=== PATIENT | male | born 1940 | race Two or more races ===

== ENCOUNTER → 2024-07-25 | Outpatient (CLI) | payer MEDICARE, MEDICAID, SELFPAY ==
[2024-07-25 09:43] LABS: Basophils # (Auto) 0.1 Thou/mm3 (0.0-0.2); Basophils % (Auto) 0 % (0-2.5); Eosinophils # (Auto) 0.4 Thou/mm3 (0.0-0.5); Eosinophils % (Auto) 2 % (0-10); Hematocrit 36.5 % (41.0-53.0); Hemoglobin 12.4 g/dL (13.5-16.0); Immature Granulocytes % (Auto) 1 % (0-0); Immature Granulocytes Auto 0.13 Thou/mm3 (0.00-0.00); Lymphocytes % (Auto) 11 % (10-50); Mean Corpuscular Hemoglobin 38.6 pg (25.0-35.0); Mean Corpuscular Volume 114 fL (80-100); Monocytes # (Auto) 1.1 Thou/mm3 (0.0-0.8); Monocytes % (Auto) 6 % (0-12); Neutrophils # (Auto) 15.1 Thou/mm3 (1.8-7.7); Neutrophils % (Auto) 80 % (37-80); Nucleated Red Blood Cell % 0 /100 WBC (0); Platelet Count 739 Thou/mm3 (140-440); Red Blood Count 3.21 Miln/mm3 (4.50-5.90); White Blood Count 18.9 Thou/mm3 (3.8-10.6)
[2024-07-25 10:07] LABS: Alanine Aminotransferase 44 U/L (10-49); Albumin, Serum 4.3 gm/dL (3.4-4.8); Albumin/Globulin Ratio 1.6 (1.2-2.2); Alkaline Phosphatase 70 U/L (46-116); Anion Gap 4 (7-16); Aspartate Amino Transferase 34 U/L (0-34); BUN/Creatinine Ratio 23 Ratio (12-20); Bilirubin,Total 0.5 mg/dL (0.3-1.2); Blood Urea Nitrogen 21 mg/dL (9-23); Calcium 9.9 mg/dL (8.3-10.6); Calcium (Corrected) 9.9 mg/dL (8.5-10.1); Carbon Dioxide 32.3 mMol/L (20.0-31.0); Cardiac Risk Estimate 2.6 RATIO (4.0-6.7); Chloride 104 mMol/L (98-107); Cholesterol 77 mg/dL (132-200); Creatinine (Component) 0.9 mg/dL (0.6-1.3); Globulin 2.7 gm/dL (2.3-3.5); Glucose 140 mg/dL (74-106); HDL Cholesterol 30 mg/dL (40-60); LDL Cholesterol,Calculated 27 mg/dL (0-130); Osmolality,Calculated 284 (275-295); Sodium 140 mMol/L (136-145); Triglycerides 101 mg/dL (30-150); eGFR > 60 See Note
[2024-07-25 10:09] LABS: Glucose Estimated Average 177 mg/dL (80-131); Hemoglobin A1C 7.8 % Hgb (4.8-6.0)
[2024-07-25 10:53] LABS: Creatinine MALB Rnd Ur 87 mg/dL (30-125)
[2024-07-25 11:06] LABS: Microalbumin Creat Ratio 2149 mg/gCrea (<30); Microalbumin, Random Urine 1870 mg/L (0-300)
== END | disposition home or self-care (01) ==
LOC: COPL 08:55
PROVIDERS: PCP Specialist; Referring Provider Nurse Practitioner Family; Visit Provider Internal Medicine Nephrology
DX: E11.22 Type 2 diabetes mellitus with diabetic chronic kidney disease (principal); N18.9 Chronic kidney disease, unspecified; D63.1 Anemia in chronic kidney disease; E78.5 Hyperlipidemia, unspecified; N04.9 Nephrotic syndrome with unspecified morphologic changes; D45 Polycythemia vera; Z51.11 Encounter for antineoplastic chemotherapy; E87.5 Hyperkalemia
CPT/HCPCS: 36415; 80053; 80061; 82043; 82570; 83036; 85025

== ENCOUNTER 2024-07-31 05:33 | Inpatient (IN) | payer MEDICARE, MEDICAID, SELFPAY ==
[2024-07-31] VITALS (93 sets, daily range): BP systolic 0–234; BP diastolic 0–92; PULSE 0–125; RESP 0–32; TEMP 34.8–36.7; O2SAT 71–100; BMI 26.6; BMI 30.4
--- NOTE | 2024-07-31 05:35 | PC.NURSE ---
Pt BIB EMS with chief c/o of SOB, CPR in process as they came in the back door.
--- NOTE | 2024-07-31 06:05 | EKG_ITS ---
[facility] Test Date: 2024-07-31 Pat Name: JONNY HUDSON Department: Room: - Gender: Male Knockdown Man: : 1940 Requested By: Davide Wong Order Number: [id number] Reading MD: Davide Wong Measurements Intervals [place] Rate: 48 P: NM: QRS: -76 QRSD: 181 T: 98 QT: 394 QTc: 353 Interpretive Statements IDIOVENTRICULAR RHYTHM No previous ECG available for comparison /[id number]/[email or web address]/[id number]
--- NOTE | 2024-07-31 06:05 | XR_ITS ---
Examination: CTA chest, with intravenous contrast. CTA abdomen, with intravenous contrast. CTA pelvis, with intravenous contrast. 2-D sagittal and coronal reconstructions. 3-D reconstructions. Date and time of exam: July 27 40,024 0916 hrs. Indications: Status post cardiac arrest today, hypoxic respiratory failure postintubation CTDI vol (mgy) 14.3 DLP (MGycm) 1200 Technique: Multiple CTA images, 2.0 mm slice thickness, obtained chest, abdomen, pelvis, with the high-resolution 64 slice scanner. 100 cc Isovue-370 is administered intravenously. Sagittal and coronal 2-D reconstructions are obtained. 3-D reconstructions, angiographic images are obtained. 3-D postprocessing, including vascular maximum intensity projections. Low dose protocols were performed. One or more of the following dose reduction techniques were used; automated exposure control, adjustment of the mA and/or KV according to patient size, use of iterative reconstruction technique. Findings: Endotracheal tube tip 3 cm above abraham There is no diagnostic contrast opacification of the thoracic aorta or pulmonary arteries Extensive bibasilar opacity consistent with pneumonia, aspiration pneumonia Significant vascular congestion Orogastric tube in the stomach No focal liver or splenic lesions No gallstones No pancreatic or adrenal mass No hydronephrosis Mild left perinephric stranding Aorta normal size No bowel obstruction Normal appendix No diverticulitis Mild hemorrhage adjacent to the bladder on the left side Urinary bladder contracted around a Anguiano catheter Hips bones of the pelvis intact No thoracic or lumbar vertebral body compression fracture Manubrium intact Acute fractures right second fourth fifth sixth seventh ribs Acute fractures left fourth fifth sixth ribs without displacement Impression: There is no diagnostic contrast opacification of vascular or other structures Extensive bibasilar pneumonia, consistent with aspiration pneumonia Multiple bilateral acute rib fractures No abdominal parenchymal laceration on this essentially noncontrast study Mild hemorrhage adjacent to the bladder in the pelvis on left side, clinical correlation advised Abdominal aorta intact, no free blood in the abdomen
--- NOTE | 2024-07-31 06:05 | XR_ITS ---
Examination: CT brain head without contrast. 2-D sagittal coronal reconstructions Date and time of exam:July 31, 2024 0914 hrs. Indications: Cardiac arrest, hypoxic respiratory failure CTDI: vol (mGy):59.6 DLP: (mGycm):1208 Technique: Multiple CT axial sections of the brain have been obtained, 5 mm slice thickness. Contrast has not been administered. 2-D sagittal, coronal reconstructions have been obtained Low dose protocols were performed. One or more of the following dose reduction techniques were used; automated exposure control, adjustment of the mA and/or KV according to patient size, use of iterative reconstruction technique. Findings: No significant ventricular enlargement. Intra-axial or extra-axial hemorrhage density is not seen. No mass effect or midline shift Basal cisterns are not remarkable. Fourth ventricle is midline. Cranial vault intact. Impression: Negative for acute hemorrhage, mass effect or midline shift As clinically warranted, brain MRI follow-up would best assess for anoxic ischemic change
--- NOTE | 2024-07-31 06:07 | XR_ITS ---
Examination: AP chest single view Technique: AP portable supine chest single view Exam date and time: July 31, 2024 at 0607 hrs. Indications: Cardiopulmonary arrest today Findings: Mild enlargement cardiac contour Prominent CHF with vascular congestion and bilateral perihilar edema Endotracheal tube tip 5 cm above abraham Orogastric tube in the stomach, tip below the level of the film Moderate osteopenia Impression: Prominent CHF, consider superimposed bilateral pneumonia Endotracheal tube tip 5 cm above abraham No pneumothorax Clavicles ribs grossly intact
[2024-07-31] MEDS: AMIODARONE 150 MG IVPB 150 MG/100 ML BAG 600 MG IV (06:19)
[2024-07-31 06:28] LABS: Base Excess -3 (-3-3); HCO3 27 mEq/L (20-26); O2 Saturation 92 % (91-98); PCO2 68 mmHg (32.0-48.0); PO2 81 mmHg (83-108)
[2024-07-31 06:29] LABS: Basophils # (Auto) 0.2 Thou/mm3 (0.0-0.2); Basophils % (Auto) 0 % (0-2.5); Eosinophils # (Auto) 0.7 Thou/mm3 (0.0-0.5); Eosinophils % (Auto) 2 % (0-10); Hematocrit 38.6 % (41.0-53.0); Hemoglobin 12.4 g/dL (13.5-16.0); Immature Granulocytes % (Auto) 4 % (0-0); Immature Granulocytes Auto 1.53 Thou/mm3 (0.00-0.00); Lymphocytes # (Auto) 14.6 Thou/mm3 (1.0-4.8); Lymphocytes % (Auto) 35 % (10-50); Mean Corpuscular HGB Conc 32.1 g/dl (31.0-37.0); Mean Corpuscular Hemoglobin 37.6 pg (25.0-35.0); Mean Corpuscular Volume 117 fL (80-100); Monocytes # (Auto) 2.9 Thou/mm3 (0.0-0.8); Monocytes % (Auto) 7 % (0-12); Neutrophils # (Auto) 22.2 Thou/mm3 (1.8-7.7); Neutrophils % (Auto) 53 % (37-80); Nucleated Red Blood Cell # 0.11 Thou/mm3 (0.00-0.00); Nucleated Red Blood Cell % 0 /100 WBC (0); Platelet Count 679 Thou/mm3 (140-440); RDW Standard Deviation 67.4 fL (35.1-43.9)
--- NOTE | 2024-07-31 06:30 | PC.NURSE ---
Per Dr. Cornejo only give 1 bolus of amiodarone
[2024-07-31] MEDS: EPINEPHrine Inj 16 MG in SODIUM CHLORIDE 0.9% 250 ML 234 ML 3.402 MG IV (06:38)
[2024-07-31 06:42] LABS: Inspired Oxygen, FIO2 100 %; Puncture Site Site Not Noted
[2024-07-31 06:43] LABS: Allen Test Performed/OK
[2024-07-31] MEDS: MIDAZOLAM/NS 100 MG IVPB 100 MG/100 ML BAG IV ×2 (06:45→07:54)
[2024-07-31] MEDS: PROPOFOL 1,000 MG IVPB 1,000 MG/100 ML VIAL 2.177 MG IV (06:50)
--- NOTE | 2024-07-31 06:51 | EDNOTE_ITS ---
ED CPR RME/HPI General Chief Complaint: Cardiac Arrest/CPR Stated Complaint: CARDIAC ARREST Time Seen by Provider: 07/31/24 05:59 Arrival date/time: 07/31/24 05:33 RME / HPI RME / HPI narrative: Call was made to 911 for SOB. Patient was found to be hypoxic and started on BiPap en rout. JPTA the patient had full cardiopulmonary arrest and arrived with CPR in progress. He was intubated on arrival with first pass using a 7.5 ETT with a GlydeScope with good CO2 color change and BL chest rises. After several minutes of CPR patient regained ROSC. 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 According to the family he is full code Related Data Allergies Allergy/AdvReac Type Severity Reaction Status Date / Time No Known Allergies Allergy Verified 07/31/24 06:44 Review of Systems Review of Systems ROS Unobtainable: unobtainable due to medical condition ED Exam Narrative Physical exam: Physical exam is limited due to patient's condition. Overall, he is below-knee amputee on the left. There are no signs or evidence of trauma. On arrival, his GCS is 3 and CPR is in progress. No spontaneous cardiopulmonary activity is noted. Patient was being bagged on arrival. No fecal or urinary incontinence was noted. Pupils were dilated and fixed Course Quality Measures none Orders Category Date Time Status Bedside COVID-19 Antigen Test NOW Care 07/31/24 10:59 Active COVID-19 Screening Questionnaire NOW Care 07/31/24 10:45 Active Supervisor Dock STAT Care 07/31/24 06:05 Active Continuous Pulse Oximetry ONCE Care 07/31/24 06:05 Completed Decision to Admit X1 Care 07/31/24 10:45 Completed EKG (ED ONLY) *Do not use* NOW Care 07/31/24 06:05 Completed EKG (ED ONLY) *Do not use* NOW Care 07/31/24 06:11 Completed Emergency Titration Protocol Stat Care 07/31/24 08:29 Ordered Anguiano to [place] Routine Care 07/31/24 06:06 Ordered Insert IV NOW Care 07/31/24 05:30 Completed Insert IV STAT Care 07/31/24 06:05 Completed Insert NG / OG tube NOW Care 07/31/24 06:05 Active Intubation NOW Care 07/31/24 05:[address] angio chest abdomen pelvis Stat Exams 07/31/24 06:[address] head/brain wo con Stat Exams 07/31/24 06:05 Completed EKG (ED Only) Stat Exams 07/31/24 06:05 Draft EKG (ED Only) Stat Exams 07/31/24 06:11 Ordered XR chest 1V post procedure Stat Exams 07/31/24 06:07 Completed ABG [Arterial Blood Gas] Stat Lab 07/31/24 06:23 Completed B-Type Natriuretic Peptide Stat Lab 07/31/24 06:05 Completed Blood Culture (Lab) Stat Lab 07/31/24 10:45 Received CBC Stat Lab 07/31/24 06:05 Completed Comprehensive Metabolic Panel Stat Lab 07/31/24 06:05 Completed Drug Screen,Urine Stat Lab 07/31/24 08:24 Completed Path Review Blood Smear Stat Lab 07/31/24 06:05 Completed Sputum Culture and Gram Stain Stat Lab 07/31/24 06:23 Received Troponin I Stat Lab 07/31/24 06:05 Completed UA [Urinalysis] Stat Lab 07/31/24 08:24 Completed Amiodarone 150 mg Ivpb [Nexterone Ivpb] Med 07/31/24 06:05 Discontinued 150 mg in 100 ml IV 600 mls/hr Midazolam/Ns 100 mg Ivpb [Versed Pf Inj in Ns Premix] Med 07/31/24 06:31 Active 100 mg in 100 ml IV 1 mg/hr Norepinephrine/NS 16mg/250ml [Levophed in NS 16mg/250ml Med 07/31/24 07:07 Active ] 16 mg in 250 ml IV 0.05 mcg/kg/min Piper/Tazo Inj [Zosyn Inj] 3.375 gm Med 07/31/24 10:22 Discontinued Sodium Chloride 0.9% (P) [Ns 0.9% (P)] 50 ml IV X1 Propofol 1,000 mg Ivpb [Diprivan Ivpb] Med 07/31/24 06:44 Discontinued 1,000 mg in 100 ml IV .STK-MED Propofol 1,000 mg Ivpb [Diprivan Ivpb] Med 07/31/24 06:48 Active 1,000 mg in 100 ml IV 5 mcg/kg/min Sodium Chloride 0.9% 250 ml [Ns] 234 ml Med 07/31/24 06:35 Active EPINEPHrine Inj [Adrenalin Inj] 16 mg IV 0.05 mcg/kg/min Vancomycin Inj 1,000 mg Med 07/31/24 10:23 Active Sodium Chloride 0.9% 250 ml [Ns] 250 ml IV X1 Mechanical [Volume Ventilator] Stat RT 07/31/24 Active Vital Signs Vital signs: Vital Signs Pulse Rate 0 L 07/31/24 05:35 Respiratory Rate 2 L 07/31/24 05:35 Blood Pressure 0/0 L 07/31/24 05:35 Pulse Oximetry (%) 71 L 07/31/24 05:35 Oxygen Delivery Method Ambu-Bag 07/31/24 05:35 Cardiac Arrest / CPR MDM Narrative MDM Narrative:: Patient's reason for cardiopulmonary arrest was aspiration pneumonia. Patient was discussed with Dr. Sky, who will admit the patient. Patient is started on combination of vancomycin and Zosyn. His white count is due to several etiologies, including his leukemia, CPR as well as his aspiration pneumonia. Patient data External records reviewed:: EMS form Clinical information provided by:: EMS and family Social determinants that could affect healthcare access:: none Patient has the following chronic illnesses:: Diabetes with complications How is presenting disease/condition affected by chronic disease/condition?: exacerbated by Evaluation data The following diagnostics were reviewed and interpreted by me:: lab results, radiology exam(s) and EKG tracing(s) Lab and/or radiology exams considered but not ordered:: Not applicable Interpretation Summary: The EKG showed idioventricular rhythm. Of note a trial of percutaneous pacing with made at the bedside, which event was higher settings the patient's or not c apture. Since his vitals and blood pressure is stabilized after combination of epinephrine and norepinephrine, further workup and recommendation will be deferred. Medications / Prescriptions Medications or Prescriptions considered but not ordered:: As mentioned in the ED Medication administrations:: Medication Administration History Midazolam HCl (Versed Pf Inj In Ns Premix) 100 mg in 100 mls @ 1 mls/hr IV .Q24H PRN; Protocol PRN Reason: PER PROTOCOL Stop: 08/05/24 06:30 Last Titration: 07/31/24 10:51 Dose: 3 mg/hr, 3 mls/hr Documented By: Admin: 07/31/24 07:54 Dose: 2 mg/hr, 2 mls/hr Documented By: ER Co-signed By: LIS Titration: 07/31/24 07:54 Dose: Infused Documented By: ER Co-signed By: LIS Admin: 07/31/24 06:45 Dose: 1 mg/hr, 1 mls/hr Documented By: DB Co-signed By: DELILAH Epinephrine HCl 16 mg/ Sodium (Chloride) 250 mls @ 3.402 mls/hr IV .Q24H PRN; Protocol PRN Reason: Per Protocol Stop: 08/30/24 06:34 Last Admin: 07/31/24 06:38 Dose: 0.05 mcg/kg/min, 3.402 mls/hr Documented By: MARC Propofol (Diprivan Ivpb) 1,000 mg in 100 mls @ 2.177 mls/hr IV .Q24H PRN; Protocol PRN Reason: PER PROTOCOL Stop: 08/30/24 06:47 Last Titration: 07/31/24 08:34 Dose: 15 mcg/kg/min, 6.532 mls/hr Documented By: Titration: 07/31/24 07:34 Dose: 10 mcg/kg/min, 4.355 mls/hr Documented By: Titration: 07/31/24 06:55 Dose: 5 mcg/kg/min, 2.177 mls/hr Documented By: Admin: 07/31/24 06:50 Dose: 5 mcg/kg/min, 2.177 mls/hr Documented By: DB Co-signed By: DELILAH Norepinephrine Bitartrate (Levophed In Ns 16mg/250ml) 16 mg in 250 mls @ 3.402 mls/hr IV .Q24H PRN; Protocol PRN Reason: PER protocol Stop: 08/30/24 07:06 Last Titration: 07/31/24 10:15 Dose: 0.13 mcg/kg/min, 8.845 mls/hr Documented By: Titration: 07/31/24 09:00 Dose: 0.11 mcg/kg/min, 7.484 mls/hr Documented By: Titration: 07/31/24 08:15 Dose: 0.09 mcg/kg/min, 6.124 mls/hr Documented By: Titration: 07/31/24 08:15 Dose: 0.9 mcg/kg/min, 61.235 mls/hr Documented By: Titration: 07/31/24 07:45 Dose: 0.07 mcg/kg/min, 4.763 mls/hr Documented By: Admin: 07/31/24 07:15 Dose: 0.05 mcg/kg/min, 3.402 mls/hr Documented By: ER Vancomycin HCl 1,000 mg/ (Sodium Chloride) 250 mls @ 150 mls/hr IV X1 ONE Stop: 07/31/24 12:02 Discontinued Medications Amiodarone HCl/Dextrose (Nexterone Ivpb) 150 mg in 100 mls @ 600 mls/hr IV .Q10M ONE; Protocol Stop: 07/31/24 06:14 Last Infusion: 07/31/24 06:30 Dose: Infused Documented By: Admin: 07/31/24 06:19 Dose: 600 mls/hr Documented By: DB Propofol (Diprivan Ivpb) Confirm Administered Dose 1,000 mg in 100 mls @ ud IV .STK-MED ONE Stop: 07/31/24 06:45 Last Admin: 07/31/24 06:54 Dose: Not Given Documented By: DB Non-Admin Reason: Override Medication Piperacillin Sod/Tazobactam (Sod 3.375 gm/ Sodium Chloride) 50 mls @ 100 mls/hr IV X1 ONE Stop: 07/31/24 10:51 Last Admin: 07/31/24 11:07 Dose: 100 mls/hr Documented By: ER As above Consultations Consultation(s) initiated? (list below): Yes Consultation #1 (Physician, Specialty, Details): Dr. Sky Diagnosis Cardiac arrest differential diagnosis: acute massive pulmonary embolism, acute respiratory failure, acute myocardial infarction and cardiac arrest Most likely diagnosis given after review of the tests above:: Aspiration pneumonia Status post cardiopulmonary resuscitation Admission Indicated Admission indicated?: indicated Admission Request Was there a request for admission?: Yes Admission Attestation Admission request attestation: Discussed case with [] from Hospitalist service regarding admission. Discussed patients ED course, exam findings, labs, and radiology results. The Hospitalist [agrees,declines] to accept the patient for admission. Disposition Plan Disposition Plan: Admit Critical Care Time Critical Care Time Critical Care Time: Yes Total Critical Care Time (min.): 45 Attestation: At the time mentioned above was in discussion with the family and reevaluation of his condition. This is separate from the time spent during CPR. Discharge Plan Plan Patient Disposition: Admit Acute Care w/in Hospital Patient condition on transfer: Stable Prescriptions/Referrals Referrals: Behzad([facility])Caleb NP [Primary Care Provider] - In 1 week Problem List Clinical Impression: Aspiration pneumonia, Cardiopulmonary arrest with successful resuscitation, Airway intubation performed without difficulty Patient/Caregiver Discharge Instructions Print Language: Yemeni Stand Alone Forms: [facility] Award Info., Patient Portal Info Letter
[2024-07-31 06:56] LABS: Alanine Aminotransferase 40 U/L (10-49); Albumin, Serum 3.8 gm/dL (3.4-4.8); Albumin/Globulin Ratio 1.5 (1.2-2.2); Alkaline Phosphatase 74 U/L (46-116); Anion Gap 16 (7-16); Aspartate Amino Transferase 37 U/L (0-34); BUN/Creatinine Ratio 15 Ratio (12-20); Bilirubin,Total 0.4 mg/dL (0.3-1.2); Blood Urea Nitrogen 17 mg/dL (9-23); Calcium 8.6 mg/dL (8.3-10.6); Calcium (Corrected) 8.8 mg/dL (8.5-10.1); Carbon Dioxide 25.9 mMol/L (20.0-31.0); Chloride 100 mMol/L (98-107); Creatinine (Component) 1.1 mg/dL (0.6-1.3); Estimated Creatinine Clearance 41.9 mL/min (>60); Globulin 2.6 gm/dL (2.3-3.5); Glucose 309 mg/dL (74-106); Osmolality,Calculated 296 (275-295); Sodium 142 mMol/L (136-145); Total Protein 6.4 gm/dL (5.7-8.2); eGFR > 60 See Note
--- NOTE | 2024-07-31 06:58 | PC.NURSE ---
Dr. Cornejo trying to pace pt at this time due Pt hr at 45
[2024-07-31 07:06] LABS: Potassium 2.6 mMol/L (3.4-5.1); Troponin I 0.056 ng/mL (0.0-0.045)
[2024-07-31 07:08] LABS: B-Type Natriuretic Peptide 304 pg/mL (0-100)
[2024-07-31] MEDS: Norepinephrine/NS 16mg/250ml 16 MG/250 ML BAG 3.402 MG IV (07:15)
[2024-07-31 07:19] LABS: Path Review Blood Smear Sent to Pathologist
[2024-07-31 08:48] LABS: Collection Type, Urine Catheter
[2024-07-31 09:08] LABS: Amphetamine/Methamp Scrn,U Negative (Negative); Barbiturate Screen,Urine Negative (Negative); Benzodiazepines Screen,Urine Negative (Negative); Benzoylecgonine Screen, Ur Negative (Negative); Fentanyl Screen,Urine Negative (Negative); Opiate Screen,Urine Negative (Negative); THC Screen,Urine Negative (Negative)
[2024-07-31 09:17] LABS: Bilirubin,Urine Negative (Negative); Blood,Urine 1+ (Negative); Glucose, Urine Negative (Negative); Ketones,Urine Negative (Negative); Leukocyte Esterase,Urine Trace (Negative); Nitrite,Urine Negative (Negative); Protein,Urine 3+ (Neg - Trace); Specific Gravity,Urine 1.025 (1.001-1.035); Urobilinogen,Urine 0.2 mg/dL (0.0-1.0)
[2024-07-31 09:29] LABS: Clarity,Urine Hazy (Clear/Hazy); Color,Urine Colorless (Lt Yel-Yel); RBC,Urine 21 /hpf (0-3); Squamous Epithelial Cell,Urine 4 /hpf (0-5); Transitional Epi Cells,Urine 1 /hpf (0-5); WBC,Urine 21 /hpf (0-5)
[2024-07-31] MEDS: PIPER/TAZO INJ 3.375 GM in SODIUM CHLORIDE 0.9% (P) 50 ML IV (11:07)
--- NOTE | 2024-07-31 11:45 | ECHO_ITS ---
Transthoracic Echo Report Ht (in): 65 Wt (lb): 160 Exam Location: Portable Status: Emergency Finisher Tailor Apprentice: Dinora Peña Indications: Procedure Performed: BP: 111 / 56 HR: 60 Rhythm: Bradycardia Technical Quality: Technically difficult study MEASUREMENTS (Male / Female) Normal Values 2D ECHO LV Diastolic Diameter PLAX 4.7 cm 4.2 - 5.9 / 3.9 - 5.3 cm LV Systolic Diameter PLAX 3.4 cm IVS Diastolic Thickness 1.2 cm 0.6 - 1.0 / 0.6 - 0.9 cm LVPW Diastolic Thickness 1.2 cm 0.6 - 1.0 / 0.6 - 0.9 cm LV Relative Wall Thickness 0.5 LVOT Diameter 2.1 cm Ascending Aorta Diameter 3.5 cm M-MODE Aortic Root Diameter MM 2.9 cm LA Systolic Diameter MM 3.4 cm LA Ao Ratio MM 1.2 AV Cusp Separation MM 2.1 cm DOPPLER AV Peak Velocity 121.0 cm/s AV Peak Gradient 5.9 mmHg AV Mean Gradient 3.0 mmHg AV Velocity Time Integral 22.6 cm LVOT Peak Velocity 96.7 cm/s LVOT Peak Gradient 3.7 mmHg LVOT Velocity Time Integral 18.9 cm LVOT Cardiac Index 2134.6 cm?/min?m? AV Area Cont Eq vti 2.9 cm? AV Area Cont Eq pk 2.8 cm? MV Peak Velocity 68.9 cm/s MV Peak Gradient 1.9 mmHg MV Mean Velocity 40.5 cm/s MV Mean Gradient 1.0 mmHg MV Area PHT 2.4 cm? Mitral E Point Velocity 69.8 cm/s Mitral A Point Velocity 60.6 cm/s Mitral E to A Ratio 1.2 LV E' Lateral Velocity 7.2 cm/s Mitral E to LV E' Lateral Ratio 9.7 LV E' Septal Velocity 4.3 cm/s Mitral E to LV E' Septal Ratio 16.0 TR Peak Velocity 188.0 cm/s TR Peak Gradient 14.1 mmHg FINDINGS Left Ventricle Normal left ventricular size, Mild LVH. systolic function with no obvious regional wall motion abnormalities. The ejection fraction is visually estimated at 55-60 %. Right Ventricle The right ventricle is normal in size and systolic function. The estimated right ventricular systoli c pressure, 25mmHg.RAP 5. Left Atrium The left atrium is normal by two-dimensional, color flow and Doppler imaging with no structural abnormalities, no thrombus formation present. Right Atrium The right atrium is normal by two-dimensional imaging, color flow and Doppler imaging with no struct ural abnormalities, no thrombus formation present. Atrial Septum The interatrial septum appears normal with no evidence of a shunt. Aorta The aorta is normal by two-dimensional, color flow and Doppler interrogation. Mitral Valve The mitral valve is mildly MAC. There is no significant mitral valve regurgitation. Aortic Valve The aortic valve is trileaflet. Mild sclerosis without stenosis. There is no significant aortic valv e regurgitation. Tricuspid Valve The tricuspid valve is normal by two-dimensional, color flow and Doppler interrogation. There is mil d tricuspid valve regurgitation. Pulmonic Valve The pulmonic valve is not well visualized. There is no significant pulmonic valve regurgitation. Vessels The pulmonary artery appears normal. The inferior vena cava pulmonary and hepatic veins appear dwight l. Pericardium The pericardium is normal by two-dimensional imaging. There is no significant pericardial effusion. Other Findings Pleural effusion present. CONCLUSIONS Indication: s/p cadiac arrest: Limited and suboptmal images - pt intubated and sedated. Normal LV size and function. Mild LVH. Estimated EF 55-60% Normal RV size and function. Mild biatrial dilataion Mild MAC. Mild AV sclerosis without stenosis. Midl biatrial dilatation: Mild TR. Midly dilated IVC. Pleural effusion present. John Bustillos (Electronically Signed) Final Date: 01 August 2024 18:34
[2024-07-31] MEDS: Vancomycin Inj 1,000 MG in SODIUM CHLORIDE 0.9% 250 ML 250 ML 150 MG IV (12:09)
--- NOTE | 2024-07-31 15:16 | XR_ITS ---
Examination: AP chest single view Technique: AP portable supine chest single view Exam date and time: July 31, 2024 1522 hrs. Indications: Post central line placement, hypoxic respiratory failure, status post cardiopulmonary arrest Findings: Enlarged cardiac contour with prominent vascular congestion Extensive bilateral edema and/or pneumonia Endotracheal tube tip 5.1 cm above abraham Orogastric tube in stomach tip below the level film Interval right internal jugular central line tip SVC no pneumothorax Impression: Prominent heart failure pattern Significant pneumonia right lung Tracheal tube tip 5.1 cm above abraham Interval right internal jugular central line tip SVC satisfactory position, no pneumothorax
--- NOTE | 2024-07-31 15:54 | ESHP_ITS ---
<Statement entered by Shilpa Fregoso MD - 08/01/24 07:27> Patient was seen and examined by me personally. I have directly supervised and reviewed the above documentation by the team resident and agree with its findings with any exceptions or additional findings as below. Plan of care was discussed with the attending, Dr. Blood. Shilpa Frgeoso, PGY-2 Documentation for date of: 07/31/24 HPI History of Present Illness Chief complaint: status post cardiac arrest History of present illness: The patient is a 84-year-old male with a previous medical history of CAD status post stent placement, hypertension, [id number] diabetes mellitus, status post left BKA, lymphoproliferative disorder who was brought in by ambulance on 05:33 AM after loss of conscioussness and breathing witnessed by his who started CPR and called EMS. Exact downtime is unknown. Patient continued to be resuscitated on the way to the hospital. Before that, according to the , he reported feeling shortness of breath a few days ago, went to a doctor on Thursday, denies any recent medication changes. She reported that he was diagnosed with leukemia earlier in the year. He also has a history of 3 stent placements. ED course: he continued to receive CPR, epinephrine and ROSC was achieved, after that he was started on epinephrine and norepinephrine drip. He also received amiodaron 150 mg once and was shortly transcutaneously paced due to bradycardia. He also received vancomycin and zosyn once. Labs showed leukocytosis 22, hemoglobin 12.4, PLT 679. ABG showed pH of 7.2, pCO2 68, pO2 81. CBC showed sodium 142, potassium 2.6, creatinine 1.1, lactic acid 4.8, troponin 0.056, BNP 304. UA was unremarkable. U tox was negative. EKG showed idioventricular rhythm. Head CT was negative for acute hemorrhage, mass effect or midline shift. Chest/abdomen/pelvis CTA showed extensive bibasilar pneumonia, consistent with aspiration pneumonia, multiple bilateral acute rib fractures, mild hemorrhage adjacent to the bladder on the left side. Home medications: amlodipine 10mg, aspirin 81 mg, atorvastatin 40 mg, clopidogrel 75 mg, docusate, ezetimibe 10 mg, gabapentin 300 mg BID, lisinopril 20 mg qday, metformin 1000mg BID, ntroglycerin 0.4 mg, ruxolitinib 10 mg. and daughter were at the bedside. is the decision maker. History taking and CODE status discussion were done with use of spanish medical interpreter. It was explained to the family that patient condition was critical and that he sustained multiple rib fracture in the aftermath of chest compression after CPR. It was explained to her that in case of repeat cardiac arrest resuscitation measures include chest compression too and can cause injuries and possibly bring additional suffering. agreed that she wanted patient to continue full treatment however patient CODE stats to be changed to DNR. Patient was admitted to the ICU due to cardiogenic shock and status post cardiac arrest management and treatment. Review of Systems Review of Systems ROS Unobtainable: unobtainable due to medical condition and due to endotracheal tube Exam Vital Signs Temp Pulse Resp BP Pulse Ox O2 Del Method FiO2 98.1 F 51 L 3 L 148/50 H 95 Mechanical Ventilation 100 07/31/24 13:16 07/31/24 15:15 07/31/24 15:15 07/31/24 15:15 07/31/24 15:15 07/31/24 12:30 07/31/24 14:37 Narrative Exam Gen: Well-developed and well-nourished. Sedated, intubated. HEENT: NCAT, PERRLA, 3 mm sluggishly reactive, EOMI, MMM, anicteric conjunctivae. CVS: normal S1 and S2. RRR. No M/R/G. Resp: CTA B/L. No rhonchi, rales, crackles or wheezing. Abd: soft, non-tender, non-distended. BS+ in all 4 quadrants. MSK: Good ROM in BUE & BLE. No edema or rash. Neuro: Face is symmetrical. Left BKA. Babinski negative on the right. Tendon reflexes +, symmetrical. Psych: impossible to assess. Results: Labs 08/02/24 05:14 08/02/24 05:14 Labs: Short CBC 07/31/24 Range/Units 06:05 WBC 42.0 H* D (3.8-10.6) Thou/mm3 Hgb 12.4 L (13.5-16.0) g/dL Hct 38.6 L (41.0-53.0) % Plt Count 679 H D (140-440) Thou/mm3 BMP 07/31/24 06:05 Sodium 142 Potassium 2.6 L* Chloride 100 Carbon Dioxide 25.9 BUN 17 Creatinine 1.1 Glucose 309 H Calcium 8.6 Cardiac Enzymes 07/31/24 Range/Units 06:05 Troponin I 0.056 H* (0.0-0.045) ng/mL Liver Function 07/31/24 Range/Units 06:05 Total Bilirubin 0.4 (0.3-1.2) mg/dL AST 37 H (0-34) U/L ALT 40 (10-49) U/L Alkaline Phosphatase 74 (46-116) U/L Albumin 3.8 (3.4-4.8) gm/dL Urine 07/31/24 Range/Units 08:24 Urine Color Colorless A (Lt Yel-Yel) Urine Clarity Hazy (Clear/Hazy) Urine pH 7.0 (5.0-7.0) Ur Specific [place] 1.025 (1.001-1.035) Urine Protein 3+ A (Neg - Trace) Urine Glucose (UA) Negative (Negative) ABG Interpretation ABG results: 07/31/24 06:23 ABG pH 7.20 L ABG pCO2 68 H ABG pO2 81 L ABG HCO3 27 H ABG O2 Saturation 92 ABG Base Excess -3 Quality Measures Quality Measures VTE prophylaxis Advance care planning discussed with:: spouse Medications Home Medications and Allergies Home Medications ?Medication ?Instructions ?Recorded ?Confirmed ?Type amlodipine 10 mg tablet 10 mg PO QDAY 07/31/24 07/31/24 History aspirin 81 mg chewable tablet 81 mg PO QDAY 07/31/24 07/31/24 History atorvastatin 40 mg tablet 40 mg PO QPM 07/31/24 07/31/24 History clopidogrel 75 mg tablet (Plavix) 75 mg PO QDAY 07/31/24 07/31/24 History docusate sodium 100 mg capsule 100 mg PO BID 07/31/24 07/31/24 History ezetimibe 10 mg tablet 10 mg PO QDAY 07/31/24 07/31/24 History folic acid 1 mg tablet 1 mg PO QDAY 07/31/24 07/31/24 History gabapentin 300 mg capsule 300 mg PO BID 07/31/24 07/31/24 History lisinopril 20 mg tablet 20 mg PO QDAY 07/31/24 07/31/24 History metformin 1,000 mg tablet 1,000 mg PO BIDWMEAL 07/31/24 07/31/24 History nitroglycerin 0.4 mg sublingual 0.4 mg buccal Q5MIN PRN Chest Pain 07/31/24 07/31/24 History tablet ruxolitinib 10 mg tablet (Jakafi) 10 mg PO QDAY 07/31/24 07/31/24 History Allergies Allergy/AdvReac Type Severity Reaction Status Date / Time No Known Allergies Allergy Verified 07/31/24 06:44 Visit Medications Acetaminophen (Acetaminophen 325 Mg Tablet) 650 mg PO Q4HR PRN PRN Reason: Pain 1-3 or Temp >99 Stop: 08/30/24 11:39 Acetaminophen (Acetaminophen Supp 650 Mg Supp) 650 mg OR Q4HR PRN PRN Reason: Pain 1-3 or Temp >99 Stop: 08/30/24 11:39 Enoxaparin Sodium (Enoxaparin Sod Inj 40 Mg/0.4 Ml Syringe) 40 mg SC QDAY [facility] Stop: 08/15/24 08:59 Midazolam HCl (Versed Pf Inj In Ns Premix) 100 mg in 100 mls @ 1 mls/hr IV .Q24H PRN; Protocol PRN Reason: PER PROTOCOL Stop: 08/05/24 06:30 Last Titration: 07/31/24 10:51 Dose: 3 mg/hr, 3 mls/hr Epinephrine HCl 16 mg/ Sodium (Chloride) 250 mls @ 3.402 mls/hr IV .Q24H PRN; Protocol PRN Reason: Per Protocol Stop: 08/30/24 06:34 Last Titration: 07/31/24 15:45 Dose: 0 mcg/kg/min, 0 mls/hr Propofol (Diprivan Ivpb) 1,000 mg in 100 mls @ 2.177 mls/hr IV .Q24H PRN; Protocol PRN Reason: PER PROTOCOL Stop: 08/30/24 06:47 Last Titration: 07/31/24 11:32 Dose: 20 mcg/kg/min, 8.709 mls/hr Norepinephrine Bitartrate (Levophed In Ns 16mg/250ml) 16 mg in 250 mls @ 3.402 mls/hr IV .Q24H PRN; Protocol PRN Reason: PER protocol Stop: 08/30/24 07:06 Last Titration: 07/31/24 10:15 Dose: 0.13 mcg/kg/min, 8.845 mls/hr Potassium Chloride (Kcl Ivpb) 20 meq in 100 mls @ 50 mls/hr IV Q2H LANG Stop: 07/31/24 18:13 Dopamine HCl/Dextrose (Intropin In D5w Ivpb) 400 mg in 250 mls @ 15.544 mls/hr IV .Q16H5M PRN; Protocol PRN Reason: Bradycardia <50 and MAP <65 Stop: 08/30/24 15:15 Pantoprazole Sodium (Pantoprazole Inj 40 Mg Vial) 40 mg IVP QDAY LANG Stop: 08/31/24 08:59 Discontinued Medications Amiodarone HCl/Dextrose (Nexterone Ivpb) 150 mg in 100 mls @ 600 mls/hr IV .Q10M ONE; Protocol Stop: 07/31/24 06:14 Last Infusion: 07/31/24 06:30 Dose: Infused Vancomycin HCl 1,000 mg/ (Sodium Chloride) 250 mls @ 150 mls/hr IV X1 ONE Stop: 07/31/24 12:02 Last Admin: 07/31/24 12:09 Dose: 150 mls/hr Piperacillin Sod/Tazobactam (Sod 3.375 gm/ Sodium Chloride) 50 mls @ 100 mls/hr IV X1 ONE Stop: 07/31/24 10:51 Last Infusion: 07/31/24 11:38 Dose: Infused Potassium Chloride (Kcl Ivpb) 10 meq in 100 mls @ 100 mls/hr IV Q1H LANG Stop: 07/31/24 15:45 Last Admin: 07/31/24 14:33 Dose: Not Given Dopamine HCl/Dextrose (Intropin In D5w Ivpb) 400 mg in 250 mls @ 15.544 mls/hr IV .Q16H5M LANG; Protocol Stop: 08/30/24 15:15 Potassium Chloride (Potassium Chloride 10% 20 Meq/15 Ml Udc) 40 meq NG X1 ONE Stop: 07/31/24 14:13 Assessment & Plan Plan The patient is a 84-year-old male with a previous medical history of CAD status post stent placement, [id number] diabetes mellitus, status post left BKA, leukemia who was brought in by ambulance on 05:33 AM after loss of conscioussness and breathing witnessed by his who started CPR and called EMS. Patient was admitted to the ICU due to cardiogenic shock and status post cardiac arrest management and treatment. NEURO #Status post cardiac arrest #Acute hypoxic brain injury Patient is s/p cardiac arrest with unknown down time. Head CT was unremarkable. Patient is currently sedated, will wean of midazolam and uptitrate propofol, start fentanyl. Plan: ? Continue sedation with propofol and fentanyl, goal RASS -3 ? Will continue to reassess neurological status ? Maintain normothermia CARDIO #Cardiogenic shock #NSTEMI Type 1 vs Type 2 #Bradycardia #Status post cardiac arrest #History of CAD status post stent placement #History of hypertension Patient had a cardiac arrest with unknown down time. EKG showed idioventricular rate. He was briefly paced in the ED. Troponin elevation most likely in setting of post-CPR. Plan: - downtitrate and discontinue epinephrine - started norepinephrine - started dopamine - goal MAP of >65, HR>50 - trend troponins - blood culture pending - echo ordered PULM #Acute hypoxic respiratory failure #Bilateral pneumonia Aspiration pneumonia vs CAP Plan: - continue mechanical ventilation - sputum culture pending - ceftriaxone 07/31-present - azithromycine 07/31-present GI #No active problems ?Pantoprazole for prophylaxis NEPHRO #Hypokalemia 07/31 K 2.6 Plan: - K+ 40 mEq NG tube - K+ 40 mEq IV - potassium checks URO #Intrapelvic hemorrhage CT showed mild hemorrhage adjacent to the bladder. Plan: - consulted urologist Dr. Caitlin BUSCH #History of lymphoproliferative disease #Leukocytosis Patient's reports him being diagnosed with leukemia in [place] earlier this year, however does not recall specific diagnosis. One of his home medication is ruxolitinib. CBC showed consistently elevated WBC count in the last year. 07/31 WBC 50.9. Leukocytosis ishigher than usual, likely reactive post cardiac arrest. - continue to monitor CBC ENDO #Zhl-[id number]-tbdhzyvlu diabetes mellitus Plan: - maintain euglycemia - SSI ID #Pneumonia Most likely aspiration vs CAP Plan: - Ceftriaxone - Azithromycine MSK #Acute rib fractures #S/p left BKA Plan: - pain control - imaging is negative for pneumothorax SKIN #No active problems DVT prophylaxis: lovenox sc GI prophylaxis: pantoprazole Diet: NPO [place]: Present Lines: peripheral lines, central line Antibiotics: ceftriaxone, azithromycine CODE STATUS: DNR Reason for ICU care: status post cardiac arrest and cardiogenic shock Plan of care discussed with attending Dr. Blood, PGY-[address] Fregoso. Eliana Guajardo MD, PGY 1. Attending Provider Attestation/Addendum Patient seen and examined with above resident, Eliana Guajardo MD. I agree with the findings, assessment, and plan of care as documented except for any differences below. Patient with [id number] cardiac arrest with unclear etiology. Being empirically treated for pneumonia in the suspect that this is related to resuscitative efforts and potential aspiration more so than underlying infection as he did not have significant symptoms prior to arrest per family. Patient with extensive cardiac history and awaiting input additionally from cardiology to help with determining need for ongoing intervention. Patient appears stable on current ventilator settings. Empirically treated for community-acquired pneumonia with appropriate prophylaxis and lines. Patient CODE STATUS has been changed to DNR after discussion with his . Will need to assess neurologic recovery by the interim will maintain normothermia to avoid secondary injury. Electrolytes being replaced appropriately though I doubt these are related to as the initial cause of the event. Description suggest that there was cardiac though initial rhythm suggest noncardiac causes typically seen with PEA/asystole. However this may. More of a reflection of the prolonged time between event and the time intervention could be done. He did have episode of V-fib during resuscitation here at the hospital to suggest cardiac. Surprisingly troponin trend was unrevealing thus far. There is an area of intrapelvic hemorrhage potentially which we will further delineated after input from urology. Continue all supportive care otherwise. Total critical care time: I personally spent 40 minutes for review of physiologic parameters, directing plan of care throughout the day, coordination of care with other specialties, and counseling patient's family at bedside. This is exclusive of time spent teaching housestaff or performing any separate billable procedures.
[2024-07-31] MEDS: POTASSIUM CHL 20 mEq IVPB 20 MEQ/100 ML BAG 50 MEQ IV ×2 (15:57→16:54)
[2024-07-31] MEDS: POTASSIUM CHLORIDE 10% 20 MEQ/15 ML UDC 40 MEQ NG (15:57)
[2024-07-31] MEDS: fentaNYL 2,500 MCG/250 ML BAG 2,500 MCG/250 ML BAG IV (16:20)
[2024-07-31] MEDS: PROPOFOL 1,000 MG IVPB 1,000 MG/100 ML VIAL 8.709 MG IV (16:26)
[2024-07-31 16:35] LABS: Basophils # (Auto) 0.2 Thou/mm3 (0.0-0.2); Basophils % (Auto) 0 % (0-2.5); Eosinophils % (Auto) 0 % (0-10); Hematocrit 33.8 % (41.0-53.0); Hemoglobin 11.4 g/dL (13.5-16.0); Immature Granulocytes % (Auto) 2 % (0-0); Immature Granulocytes Auto 1.22 Thou/mm3 (0.00-0.00); Lymphocytes # (Auto) 1.2 Thou/mm3 (1.0-4.8); Lymphocytes % (Auto) 2 % (10-50); Mean Corpuscular HGB Conc 33.7 g/dl (31.0-37.0); Mean Corpuscular Hemoglobin 37.7 pg (25.0-35.0); Mean Corpuscular Volume 112 fL (80-100); Monocytes # (Auto) 2.9 Thou/mm3 (0.0-0.8); Monocytes % (Auto) 6 % (0-12); Neutrophils # (Auto) 45.4 Thou/mm3 (1.8-7.7); Neutrophils % (Auto) 89 % (37-80); Nucleated Red Blood Cell # 0.19 Thou/mm3 (0.00-0.00); Nucleated Red Blood Cell % 0 /100 WBC (0); Platelet Count 693 Thou/mm3 (140-440); RDW Standard Deviation 65.6 fL (35.1-43.9); Red Blood Count 3.02 Miln/mm3 (4.50-5.90)
[2024-07-31 16:40] LABS: Lactate (Lactic Acid) 4.8 mMol/L (0.4-2.0)
[2024-07-31 16:43] LABS: White Blood Count 50.9 Thou/mm3 (3.8-10.6)
[2024-07-31 16:45] LABS: Path Review Blood Smear Sent to Pathologist
[2024-07-31] MEDS: cefTRIAXone/D5w 1gm IV premix 50 ML IV (16:49)
[2024-07-31 17:10] LABS: Alanine Aminotransferase 54 U/L (10-49); Albumin, Serum 3.7 gm/dL (3.4-4.8); Albumin/Globulin Ratio 1.5 (1.2-2.2); Alkaline Phosphatase 66 U/L (46-116); Anion Gap 14 (7-16); Aspartate Amino Transferase 60 U/L (0-34); BUN/Creatinine Ratio 15 Ratio (12-20); Bilirubin,Total 0.4 mg/dL (0.3-1.2); Blood Urea Nitrogen 26 mg/dL (9-23); Calcium 8.5 mg/dL (8.3-10.6); Calcium (Corrected) 8.7 mg/dL (8.5-10.1); Carbon Dioxide 26.5 mMol/L (20.0-31.0); Chloride 99 mMol/L (98-107); Creatinine (Component) 1.7 mg/dL (0.6-1.3); Estimated Creatinine Clearance 30.9 mL/min (>60); Globulin 2.5 gm/dL (2.3-3.5); Glucose 330 mg/dL (74-106); Osmolality,Calculated 295 (275-295); Potassium 3.5 mMol/L (3.4-5.1); Sodium 139 mMol/L (136-145); Total Protein 6.2 gm/dL (5.7-8.2); eGFR 39 See Note
[2024-07-31] MEDS: DOPamine/D5w 400 MG IVPB 400 MG/250 ML BAG 15.544 MG IV (17:10)
[2024-07-31 17:13] LABS: Troponin I 1.546 ng/mL (0.0-0.045)
[2024-07-31] MEDS: AZITHROMYCIN INJ 500 MG in SODIUM CHLORIDE 0.9% 250 ML 250 ML 250 MG IV (17:24)
[2024-07-31 17:40] LABS: Base Excess 1 (-3-3); HCO3 27 mEq/L (20-26); Inspired Oxygen, FIO2 80 %; PCO2 50 mmHg (32.0-48.0); pH, Arterial 7.34 (7.35-7.45)
[2024-07-31 17:46] LABS: Allen Test Performed/OK; Puncture Site Left Brachial
[2024-07-31 17:47] LABS: O2 Saturation 81 % (91-98); PO2 51 mmHg (83-108)
[2024-07-31] MEDS: INSULIN LISPRO (AdmeLOG) 1 UNIT/0.01 ML UNIT SC (18:13)
--- NOTE | 2024-07-31 18:54 | PD.RESPROC ---
Procedures Procedure Date / Time 07/31/24 1500 Procedure Narrative Procedure Narrative: Attending Attestation: I was present for entire procedure. No immediate complications. Patient tolerated procedure well. Minimal blood loss. Follow-up chest film confirms no postprocedural pneumothorax. Central Line Placement Right IJ: Indication(s): shock and poor, or inadequate peripheral venous access Informed consent obtained: obtained from surrogate decision maker Time out done, and the following verified: correct patient, side and site, procedure and patient position Patient placed on monitor/pulse ox: Yes Hand Hygiene: alcohol-based hand rub Max Sterile Barrier Techniques used: cap, mask, sterile gown, sterile gloves and sterile full body drape Central line prep: Chlorhexidine scrub and sterile drapes applied Local anesthesia used: lidocaine 1% Amount of anesthesia used (mL): 3 Ultrasound used for placement: Yes Sterile Technique if Ultrasound used, including sterile gel: yes Central line lumen inserted: triple Post procedure: sutured in place, good blood return, all ports aspirated, flushed, capped and sterile dressing applied Post procedure x-ray: tip of catheter in good position and no pneumothorax seen Patient tolerated procedure: well and no complications EBL(ml): 3 Complications: none Procedure comment: Procedure was done under supervision and guidance of agency service representative Dr. Blood. Eliana Guajardo PGY-1
[2024-07-31 19:07] LABS: Magnesium 1.7 mg/dL (1.6-2.6); Phosphorous 4.5 mg/dL (2.4-5.1); Potassium 4.3 mMol/L (3.4-5.1)
[2024-07-31 19:30] LABS: Reflex Lactate? Y
[2024-07-31 19:49] LABS: Lactic Acid, 3 HR 4.8 mMol/L (0.4-2.0)
[2024-08-01] VITALS (105 sets, daily range): BP systolic 89–167; BP diastolic 36–71; PULSE 49–76; RESP 12–32; TEMP 36.7–37.2; O2SAT 81–95; BMI 30.4
[2024-08-01] MEDS: INSULIN LISPRO (AdmeLOG) 1 UNIT/0.01 ML UNIT SC ×4 (00:23→17:41)
[2024-08-01 00:50] LABS: Lactate (Lactic Acid) 3.3 mMol/L (0.4-2.0)
[2024-08-01 01:16] LABS: Troponin I 1.759 ng/mL (0.0-0.045)
[2024-08-01 03:47] LABS: Reflex Lactate? Y
[2024-08-01 05:15] LABS: Base Excess 6 (-3-3); HCO3 31 mEq/L (20-26); Inspired Oxygen, FIO2 100 %; O2 Saturation 77 % (91-98); PCO2 46 mmHg (32.0-48.0); pH, Arterial 7.43 (7.35-7.45)
[2024-08-01 05:24] LABS: Allen Test Performed/OK; Puncture Site Right Radial
[2024-08-01 05:25] LABS: PO2 43 mmHg (83-108)
[2024-08-01 05:51] LABS: Lactate (Lactic Acid) 2.4 mMol/L (0.4-2.0)
--- NOTE | 2024-08-01 06:00 | XR_ITS ---
Examination: AP chest single view Technique one AP portable semiupright chest single view Exam date and time: August 01, 2024 hours 0430 hours Comparison July 31, 2004 1522 hours INDICATIONS: Status post cardiac arrest hypoxic respiratory failure postintubation FINDINGS: Tracheal tube tip 4.5 cm above abraham Right internal jugular central line tip satisfactory position Cardiac compensation with prominent vascular congestion and perihilar edema Prominent bibasilar pneumonia Moderate osteopenia No pneumothorax IMPRESSION: Prominent bibasilar pneumonia consistent with aspiration pneumonia
[2024-08-01 06:02] LABS: Basophils # (Auto) 0.1 Thou/mm3 (0.0-0.2); Basophils % (Auto) 0 % (0-2.5); Eosinophils % (Auto) 0 % (0-10); Hematocrit 32.3 % (41.0-53.0); Immature Granulocytes % (Auto) 2 % (0-0); Immature Granulocytes Auto 0.48 Thou/mm3 (0.00-0.00); Lymphocytes # (Auto) 1.7 Thou/mm3 (1.0-4.8); Lymphocytes % (Auto) 5 % (10-50); Mean Corpuscular HGB Conc 34.1 g/dl (31.0-37.0); Mean Corpuscular Hemoglobin 38.2 pg (25.0-35.0); Mean Corpuscular Volume 112 fL (80-100); Monocytes # (Auto) 2.8 Thou/mm3 (0.0-0.8); Monocytes % (Auto) 9 % (0-12); Neutrophils # (Auto) 26.8 Thou/mm3 (1.8-7.7); Neutrophils % (Auto) 84 % (37-80); Nucleated Red Blood Cell # 0.14 Thou/mm3 (0.00-0.00); Nucleated Red Blood Cell % 0 /100 WBC (0); Platelet Count 629 Thou/mm3 (140-440); RDW Standard Deviation 65.1 fL (35.1-43.9); Red Blood Count 2.88 Miln/mm3 (4.50-5.90); White Blood Count 31.8 Thou/mm3 (3.8-10.6)
[2024-08-01 06:51] LABS: Alanine Aminotransferase 48 U/L (10-49); Albumin, Serum 3.7 gm/dL (3.4-4.8); Albumin/Globulin Ratio 1.5 (1.2-2.2); Alkaline Phosphatase 58 U/L (46-116); Anion Gap 11 (7-16); Aspartate Amino Transferase 50 U/L (0-34); BUN/Creatinine Ratio 15 Ratio (12-20); Bilirubin,Total 0.3 mg/dL (0.3-1.2); Blood Urea Nitrogen 35 mg/dL (9-23); Calcium 8.5 mg/dL (8.3-10.6); Calcium (Corrected) 8.7 mg/dL (8.5-10.1); Carbon Dioxide 29.1 mMol/L (20.0-31.0); Chloride 100 mMol/L (98-107); Creatinine (Component) 2.3 mg/dL (0.6-1.3); Estimated Creatinine Clearance 22.8 mL/min (>60); Globulin 2.5 gm/dL (2.3-3.5); Glucose 243 mg/dL (74-106); Magnesium 1.6 mg/dL (1.6-2.6); Osmolality,Calculated 295 (275-295); Phosphorous 3.2 mg/dL (2.4-5.1); Potassium 4.2 mMol/L (3.4-5.1); Sodium 140 mMol/L (136-145); Total Protein 6.2 gm/dL (5.7-8.2); eGFR 27 See Note
[2024-08-01] MEDS: PROPOFOL 1,000 MG IVPB 1,000 MG/100 ML VIAL 8.709 MG IV (07:41)
[2024-08-01] MEDS: cefTRIAXone/D5w 1gm IV premix 50 ML IV (08:19)
[2024-08-01] MEDS: Magnesium Sulfate 4 GM Ivpb 4 GM/50 ML BAG IV (08:20)
[2024-08-01] MEDS: PANTOPRAZOLE INJ 40 MG VIAL IVP (08:21)
[2024-08-01] MEDS: ENOXAPARIN SOD INJ 40 MG/0.4 ML SYRINGE SC (08:21)
[2024-08-01] MEDS: fentaNYL 2,500 MCG/250 ML BAG 2,500 MCG/250 ML BAG 27.5 MCG IV (08:39)
[2024-08-01 08:45] LABS: Reflex Lactate? Y
[2024-08-01] MEDS: AMIODARONE 150 MG IVPB 150 MG/100 ML BAG 600 MG IV (09:10)
[2024-08-01] MEDS: AMIODARONE 360 MG IVPB 360 MG/200 ML BAG 33.333 MG IV (09:20)
--- NOTE | 2024-08-01 09:22 | ESPR_ITS ---
<Statement entered by Shilpa Fregoso MD - 08/01/24 16:14> Patient was seen and examined by me personally. I have directly supervised and reviewed the above documentation by the team resident and agree with its findings with any exceptions or additional findings as below. Plan of care was discussed with the attending, Dr. Blood. Shilpa Fregoso, PGY-2 Documentation for date of: 08/01/24 Subjective Subjective Interval history: 07/29/2024: Patient was seen and examined by the bedside. Overnight patient had been bradycardic in the evening. He continued to be on dopamin. In the a.m. he had an short episode of ventricular tachycardia, that quickly resolved, he was started on amiodarone drip, dopamine was down titrated and Levophed was started. Also he started to desaturate, FiO2 was increased to 100 which did not improve the saturation, PEEP was increased to 10. Repeat chest x-ray did not showed significant worsening of pneumonia or CHF, negative for pneumothorax. He received a breathing treatments. His saturations has improved. According to the patient was following up with Dr. Bustillos and and was planned to be assessed for pacemaker plantation. Per it was requested that information about patient condition will be shared only with her. Exam Vital Signs Temp Pulse Resp BP Pulse Ox O2 Del Method FiO2 97.6 F 51 L 20 107/40 L 89 L Mechanical Ventilation 100 07/31/24 16:01 08/01/24 09:20 08/01/24 01:00 08/01/24 09:20 08/01/24 07:45 07/31/24 12:30 08/01/24 08:00 Narrative Exam Gen: Well-developed and well-nourished. Sedated, intubated. GCS 3. HEENT: NCAT, PERRLA, 2 mm, EOMI, MMM, anicteric conjunctivae. CVS: normal S1 and S2. RRR. No M/R/G. Resp: CTA B/L. No rhonchi, rales, crackles or wheezing. Abd: soft, non-tender, non-distended. BS+ in all 4 quadrants. MSK: Good ROM in BUE & BLE. No edema or rash. Neuro: Face is symmetrical. Coughing reflex intact. Left BKA. Babinski negative on the right. Tendon reflexes +, symmetrical. Psych: impossible to assess. Objective Labs 08/02/24 05:14 08/02/24 05:14 Labs: Laboratory Results - last 24 hr 07/31/24 07/31/24 07/31/24 08:24 16:23 16:55 WBC 50.9 H* D RBC 3.02 L Hgb 11.4 L Hct 33.8 L MCV 112 H MCH 37.7 H MCHC 33.7 RDW Std Deviation 65.6 H Plt Count 693 H Neut % (Auto) 89 H Lymph % (Auto) 2 L [place] % (Auto) 6 Eos % (Auto) 0 Baso % (Auto) 0 Neut # (Auto) 45.4 H Lymph # (Auto) 1.2 [place] # (Auto) 2.9 H Eos # (Auto) 0.0 Baso # (Auto) 0.2 Immature Gran # (Auto) 1.22 H Absolute Nucleated RBC 0.19 H Immature Gran % 2 H Nucleated RBC % 0 Smear Path Review Sent to Pathologist Puncture Site Cancelled ABG pH Cancelled ABG pCO2 Cancelled ABG pO2 Cancelled ABG HCO3 Cancelled ABG O2 Saturation Cancelled ABG Base Excess Cancelled Oxygen Liter Flow Cancelled FiO2 Cancelled Sodium 139 Potassium 3.5 D Chloride 99 Carbon Dioxide 26.5 Anion Gap 14 BUN 26 H Creatinine 1.7 H D Estim Creat Clear Calc 30.9 L eGFR 39 L BUN/Creatinine Ratio 15 Glucose 330 H Calculated Osmolality 295 Lactic Acid 4.8 H* Calcium 8.5 Corrected Calcium 8.7 Phosphorus Magnesium Total Bilirubin 0.4 AST 60 H ALT 54 H Alkaline Phosphatase 66 Troponin I 1.546 H* D Total Protein 6.2 Albumin 3.7 Globulin 2.5 Albumin/Globulin Ratio 1.5 Ur Collection Type Catheter Urine Color Colorless A Urine Clarity Hazy Urine pH 7.0 Ur Specific Jackson 1.025 Urine Protein 3+ A Urine Glucose (UA) Negative Urine Ketones Negative Urine Blood 1+ A Urine Nitrite Negative Urine Bilirubin Negative Urine Urobilinogen (Auto) 0.2 Ur Leukocyte Esterase Trace Urine RBC 21 H Urine WBC 21 H Ur Squamous Epith Cells 4 Ur Transition Epith Cell 1 Urine Bacteria None 07/31/24 07/31/24 07/31/24 17:33 18:40 19:38 WBC RBC Hgb Hct MCV MCH MCHC RDW Std Deviation Plt Count Neut % (Auto) Lymph % (Auto) [place] % (Auto) Eos % (Auto) Baso % (Auto) Neut # (Auto) Lymph # (Auto) [place] # (Auto) Eos # (Auto) Baso # (Auto) Immature Gran # (Auto) Absolute Nucleated RBC Immature Gran % Nucleated RBC % Smear Path Review Puncture Site Left Brachial ABG pH 7.34 L D ABG pCO2 50 H D ABG pO2 51 L* D ABG HCO3 27 H ABG O2 Saturation 81 L ABG Base Excess 1 Oxygen Liter Flow FiO2 80 Sodium Potassium 4.3 D Chloride Carbon Dioxide Anion Gap BUN Creatinine Estim Creat Clear Calc eGFR BUN/Creatinine Ratio Glucose Calculated Osmolality Lactic Acid 4.8 H* Calcium Corrected Calcium Phosphorus 4.5 Magnesium 1.7 Total Bilirubin AST ALT Alkaline Phosphatase Troponin I Total Protein Albumin Globulin Albumin/Globulin Ratio Ur Collection Type Urine Color Urine Clarity Urine pH Ur Specific Jackson Urine Protein Urine Glucose (UA) Urine Ketones Urine Blood Urine Nitrite Urine Bilirubin Urine Urobilinogen (Auto) Ur Leukocyte Esterase Urine RBC Urine WBC Ur Squamous Epith Cells Ur Transition Epith Cell Urine Bacteria 08/01/24 08/01/24 08/01/24 00:31 05:00 05:30 WBC 31.8 H D RBC 2.88 L Hgb 11.0 L Hct 32.3 L MCV 112 H MCH 38.2 H MCHC 34.1 RDW Std Deviation 65.1 H Plt Count 629 H D Neut % (Auto) 84 H Lymph % (Auto) 5 L [place] % (Auto) 9 Eos % (Auto) 0 Baso % (Auto) 0 Neut # (Auto) 26.8 H Lymph # (Auto) 1.7 [place] # (Auto) 2.8 H Eos # (Auto) 0.0 Baso # (Auto) 0.1 Immature Gran # (Auto) 0.48 H Absolute Nucleated RBC 0.14 H Immature Gran % 2 H Nucleated RBC % 0 Smear Path Review Puncture Site Right Radial ABG pH 7.43 ABG pCO2 46 ABG pO2 43 L* ABG HCO3 31 H ABG O2 Saturation 77 L ABG Base Excess 6 H Oxygen Liter Flow FiO2 100 Sodium 140 Potassium 4.2 Chloride 100 Carbon Dioxide 29.1 Anion Gap 11 BUN 35 H Creatinine 2.3 H D Estim Creat Clear Calc 22.8 L eGFR 27 L BUN/Creatinine Ratio 15 Glucose 243 H D Calculated Osmolality 295 Lactic Acid 3.3 H 2.4 H Calcium 8.5 Corrected Calcium 8.7 Phosphorus 3.2 Magnesium 1.6 Total Bilirubin 0.3 AST 50 H ALT 48 Alkaline Phosphatase 58 Troponin I 1.759 H* D Total Protein 6.2 Albumin 3.7 Globulin 2.5 Albumin/Globulin Ratio 1.5 Ur Collection Type Urine Color Urine Clarity Urine pH Ur Specific Jackson Urine Protein Urine Glucose (UA) Urine Ketones Urine Blood Urine Nitrite Urine Bilirubin Urine Urobilinogen (Auto) Ur Leukocyte Esterase Urine RBC Urine WBC Ur Squamous Epith Cells Ur Transition Epith Cell Urine Bacteria 08/01/24 09:03 WBC RBC Hgb Hct MCV MCH MCHC RDW Std Deviation Plt Count Neut % (Auto) Lymph % (Auto) [place] % (Auto) Eos % (Auto) Baso % (Auto) Neut # (Auto) Lymph # (Auto) [place] # (Auto) Eos # (Auto) Baso # (Auto) Immature Gran # (Auto) Absolute Nucleated RBC Immature Gran % Nucleated RBC % Smear Path Review Puncture Site ABG pH ABG pCO2 ABG pO2 ABG HCO3 ABG O2 Saturation ABG Base Excess Oxygen Liter Flow FiO2 Sodium Potassium Chloride Carbon Dioxide Anion Gap BUN Creatinine Estim Creat Clear Calc eGFR BUN/Creatinine Ratio Glucose Calculated Osmolality Lactic Acid 2.0 Calcium Corrected Calcium Phosphorus Magnesium Total Bilirubin AST ALT Alkaline Phosphatase Troponin I Total Protein Albumin Globulin Albumin/Globulin Ratio Ur Collection Type Urine Color Urine Clarity Urine pH Ur Specific Jackson Urine Protein Urine Glucose (UA) Urine Ketones Urine Blood Urine Nitrite Urine Bilirubin Urine Urobilinogen (Auto) Ur Leukocyte Esterase Urine RBC Urine WBC Ur Squamous Epith Cells Ur Transition Epith Cell Urine Bacteria ABG Interpretation ABG results: 07/31/24 07/31/24 07/31/24 06:23 16:55 17:33 ABG pH 7.20 L Cancelled 7.34 L D ABG pCO2 68 H Cancelled 50 H D ABG pO2 81 L Cancelled 51 L* D ABG HCO3 27 H Cancelled 27 H ABG O2 Saturation 92 Cancelled 81 L ABG Base Excess -3 Cancelled 1 08/01/24 05:00 ABG pH 7.43 ABG pCO2 46 ABG pO2 43 L* ABG HCO3 31 H ABG O2 Saturation 77 L ABG Base Excess 6 H Quality Measures Quality Measures VTE prophylaxis Advance care planning discussed with:: spouse Assessment & Plan Assessment Current Active Medications: Generic Name Dose Route Start Last Admin Trade Name Freq PRN Reason Stop Dose Admin Acetaminophen 650 mg 07/31/24 11:40 Acetaminophen 325 Mg Tablet PO 08/30/24 11:39 Q4HR PRN Pain 1-3 or Temp >99 Acetaminophen 650 mg 07/31/24 11:40 Acetaminophen Supp 650 Mg Supp MI 08/30/24 11:39 Q4HR PRN Pain 1-3 or Temp >99 Dextrose 25 ml 07/31/24 17:52 Dextrose 50%-Water Inj 50 Ml Syringe IV 08/30/24 17:51 Q15MIN PRN BG 50-70 responsive npo pt Dextrose 50 ml 07/31/24 17:52 Dextrose 50%-Water Inj 50 Ml Syringe IV 08/30/24 17:51 Q15MIN PRN BG <50 OR BG <70 & pt unresponsive Enoxaparin Sodium 40 mg 08/01/24 09:00 08/01/24 08:21 Enoxaparin Sod Inj 40 Mg/0.4 Ml Syringe SC 08/15/24 08:59 40 mg QDAY LANG Administration Glucagon 1 mg 07/31/24 17:52 Glucagon Inj 1 Mg Vial IM Q15MIN PRN BG <70, and no IV access Midazolam HCl 100 mg in 100 mls @ 1 mls/hr 07/31/24 06:31 07/31/24 15:45 Versed Pf Inj In Ns Premix IV 08/05/24 06:30 0 mg/hr .Q24H PRN 0 mls/hr PER PROTOCOL Titration Protocol 1 MG/HR Epinephrine HCl 16 mg/ Sodium 250 mls @ 3.402 mls/hr 07/31/24 06:35 07/31/24 15:45 Chloride IV 08/30/24 06:34 0 mcg/kg/min .Q24H PRN 0 mls/hr Per Protocol Titration Protocol 0.05 MCG/KG/MIN Propofol 1,000 mg in 100 mls @ 2.177 mls/hr 07/31/24 06:48 08/01/24 07:41 Diprivan Ivpb IV 08/30/24 06:47 20 mcg/kg/min .Q24H PRN 8.709 mls/hr PER PROTOCOL Administration Protocol 5 MCG/KG/MIN Norepinephrine Bitartrate 16 mg in 250 mls @ 3.402 mls/hr 07/31/24 07:07 07/31/24 20:15 Levophed In Ns 16mg/250ml IV 08/30/24 07:06 0 mcg/kg/min .Q24H PRN 0 mls/hr PER protocol Titration Protocol 0.05 MCG/KG/MIN Fentanyl Citrate 2,500 mcg in 250 mls @ 2.5 mls/hr 07/31/24 16:03 08/01/24 08:39 Sublimaze Inj 2,500 Mcg/250 Ml Bag IV 08/05/24 16:02 275 mcg/hr .Q24H PRN 27.5 mls/hr PER PROTOCOL Administration Protocol 25 MCG/HR Ceftriaxone Sodium/Dextrose 50 mls @ 100 mls/hr 07/31/24 16:26 08/01/24 08:19 Rocephin/D5w 1gm Iv Premix IV 08/07/24 16:25 100 mls/hr QDAY LANG Administration Azithromycin 500 mg/ Sodium 250 mls @ 250 mls/hr 07/31/24 16:26 07/31/24 17:24 Chloride IV 08/07/24 16:25 250 mls/hr QDAY LANG Administration Dopamine HCl/Dextrose 400 mg in 250 mls @ 15.544 mls/hr 07/31/24 17:10 08/01/24 06:00 Intropin In D5w Ivpb IV 08/30/24 15:15 5 mcg/kg/min .Q16H5M PRN 15.544 mls/hr HR< 50 Titration Protocol 5 MCG/KG/MIN Magnesium Sulfate 4 gm in 50 mls @ 12.5 mls/hr 08/01/24 08:09 08/01/24 08:20 Magnesium Sulfate Ivpb IV 08/01/24 12:08 12.5 mls/hr X1 ONE Administration Amiodarone HCl/Dextrose 360 mg in 200 mls @ 33.333 mls/hr 08/01/24 09:04 08/01/24 09:20 Nexterone Ivpb IV 08/01/24 15:03 33.333 mls/hr .Q6H ONE Administration Amiodarone HCl/Dextrose 360 mg in 200 mls @ 16.667 mls/hr 08/01/24 15:04 Nexterone Ivpb IV 08/02/24 15:03 .Q12H LANG Insulin Human Lispro 0 unit 07/31/24 18:00 08/01/24 06:30 Insulin Lispro (Admelog) 1 Unit/0.01 Ml Unit SC 08/30/24 17:59 3 unit Q6HR LANG Administration Protocol Pantoprazole Sodium 40 mg 08/01/24 09:00 08/01/24 08:21 Pantoprazole Inj 40 Mg Vial IVP 08/31/24 08:59 40 mg QDAY LANG Administration Plan The patient is a 84-year-old male with a previous medical history of CAD status post stent placement, [id number] diabetes mellitus, status post left BKA, leukemia who was brought in by ambulance on 05:33 AM after loss of conscioussness and breathing witnessed by his who started CPR and called EMS. Patient was admitted to the ICU due to cardiogenic shock and status post cardiac arrest management and treatment. NEURO #Status post cardiac arrest #Acute hypoxic brain injury Patient is s/p cardiac arrest with unknown down time. Head CT was unremarkable. Patient is currently sedated, on propofol and fentanyl. Plan: ? Continue sedation with propofol and fentanyl, goal RASS -3 ? Will continue to reassess neurological status ? Maintain normothermia CARDIO #Cardiogenic shock #NSTEMI Type 1 vs Type 2 #Bradycardia #Status post cardiac arrest #History of CAD status post stent placement #History of hypertension Patient had a cardiac arrest with unknown down time. EKG showed idioventricular rate. He was briefly paced in the ED. Troponin elevation most likely in setting of post-CPR. Discontinued epinephrine, downtitrating dopamine. Troponin I downtrended. Plan: - started norepinephrine - downtitrated dopamine - goal MAP of >65, HR>50 - trend troponins - blood culture pending - echo done, report pending - auto research engineer Dr. Bustillos was consulted PULM #Acute hypoxic respiratory failure #Bilateral pneumonia Aspiration pneumonia vs CAP PEEP was increased to 10. Plan: - continue mechanical ventilation - sputum culture pending - ceftriaxone 07/31-present - azithromycine 07/31-present GI #No active problems ?Pantoprazole for prophylaxis NEPHRO #DEE #Hypokalemia, resolved DEE most likely intrarenal in the setting of cardiogenic shock 07/31 K 2.6 08/01 K 4.2 Plan: - will hold fluids at this due to cardiogenic shock - continue to monitor daily CMP - monitor urine output URO #Intrapelvic hemorrhage CT showed mild hemorrhage adjacent to the bladder. Plan: - consulted urologist Dr. Caitlin BUSCH #History of lymphoproliferative disease #Leukocytosis Patient's reports him being diagnosed with leukemia in [place] earlier this year, however does not recall specific diagnosis. One of his home medication is ruxolitinib. CBC showed consistently elevated WBC count in the last year. 07/31 WBC 50.9. Leukocytosis is higher than usual, likely reactive post cardiac arrest. - continue to monitor CBC ENDO #Dxu-wjurxdc-dririsyty diabetes mellitus Plan: - maintain euglycemia - SSI ID #Pneumonia Most likely aspiration vs CAP Plan: - Ceftriaxone - Azithromycin MSK #Acute rib fractures #S/p left BKA Plan: - pain control - imaging is negative for pneumothorax SKIN #No active problems DVT prophylaxis: lovenox sc GI prophylaxis: pantoprazole Diet: trickle tube feeds Anguiano: Present Lines: peripheral lines, central line Antibiotics: ceftriaxone, azithromycin CODE STATUS: DNR Reason for ICU care: status post cardiac arrest and cardiogenic shock Plan of care discussed with attending Dr. Blood, PGY-[address] Fregoso. Eliana Guajardo MD, PGY 1. Attending Provider Attestation/Addendum Patient seen and examined with above resident, Eliana Guajardo MD. I agree with the findings, assessment, and plan of care as documented except for any differences below. Patient with [id number] cardiac arrest admitted overnight. Patient remains in cardiogenic shock on vasopressor support. No evidence of definitive infection with empiric antibiotics for ceftriaxone and azithromycin given imaging suggesting bilateral pneumonia. However it is difficult to discern that this is the primary cause of the events that led to cardiac arrest as he had no prior symptoms suggesting pulmonary infection. This may inversely be related to aspiration or contusion during resuscitation efforts. Patient with significant rib fractures with no but no imaging suggestive pneumothorax at this point. Patient's CT of the pelvis also shows a small hemorrhage potentially around bladder and that there is no blood in the urine this may be a urocele. Will be consulting urology for additional input though I do not think that this is related to acute events. Given patient's prior cardiac history, potential etiology of event is related to arrhythmia as the patient's family reports that he was being evaluated for pacemaker at [place] pending additional input from his auto research engineer locally. Dr. Rico will see the patient and give his additional input. Troponin trend thus far is not convincing for acute infarction. Patient remains on appropriate supportive care and we will plan for sedation holiday to assess neurologic outcome after [id number] cardiac arrest. Maintain normothermia to avoid increased metabolism and increasing further secondary injury to the brain. Will start on trickle feeds as the patient remains hemodynamically stable with dopamine coming down as well as Levophed. Patient's prognosis overall remains guarded though it seems that the patient's did start CPR immediately after the inciting event. Total critical care time: I personally spent 40 minutes for review of physiologic parameters, directing plan of care throughout the day, coordination of care with other specialties, and counseling patient's family at bedside. This is exclusive of time spent teaching housestaff or performing any separate billable procedures. Patient continues to require critical care services for acute respiratory failure and cardiogenic shock with high risk for mortality and morbidity given potential anoxic brain injury from [id number] cardiac arrest.
[2024-08-01 09:37] LABS: Troponin I 1.366 ng/mL (0.0-0.045)
--- NOTE | 2024-08-01 09:44 | XR_ITS ---
Examination: AP chest single view TECHNIQUE: AP portable semiupright chest single view Exam date and time: August 01, 2024 0952 hours Comparison August 01, 2024 INDICATIONS: O2 desaturation today. Hypoxic respiratory failure FINDINGS: Tracheal tube tip 7 cm above abraham Right internal jugular central line tip SVC Moderate vascular congestion Bibasilar pneumonia Prominent osteopenia IMPRESSION: Moderate vascular congestion Bibasilar pneumonia
[2024-08-01] MEDS: ALBUTEROL/IPRATROPIUM (Duoneb) RT SOL 3 ML NEBU INH ×2 (09:55→19:10)
[2024-08-01] MEDS: AZITHROMYCIN 250 MG TABLET 500 MG PO (10:30)
[2024-08-01 11:19] LABS: Base Excess 5 (-3-3); HCO3 30 mEq/L (20-26); Inspired Oxygen, FIO2 94 %; O2 Saturation 79 % (91-98); PCO2 49 mmHg (32.0-48.0); pH, Arterial 7.41 (7.35-7.45)
[2024-08-01 11:20] LABS: Allen Test Performed/OK; Puncture Site Right Radial
[2024-08-01 11:21] LABS: PO2 47 mmHg (83-108)
--- NOTE | 2024-08-01 11:21 | PC.DIETICIAN ---
Nutrition prescription Trophic feeds of Vital 1.2 at 10 ml/hr via OG tube by pump. Water flushes of 25 ml/hr (or per MD). When indicated, advance 10 ml every 8 hrs to goal rate of 55 ml/hr x 24 hrs. If no IV fluids, water flushes of 25 ml/hr (or per MD).
[2024-08-01] MEDS: CLOPIDOGREL BISULFATE 75 MG TABLET NG (12:33)
[2024-08-01] MEDS: ASPIRIN 81 MG CHEW NG (12:33)
[2024-08-01] MEDS: EZETIMIBE 10 MG TABLET NG (12:35)
--- NOTE | 2024-08-01 12:56 | PC.SS ---
WEAVING SUPERVISOR conducted bedside contact with the patient to conduct initial assessment. Present at bedside with patient was spouse, Luther Brody . Information for initial obtained from the patient?s spouse. Patient admitted to ICU due to cardiogenic shock and status post cardiac arrest management and treatment. Patient is currently intubated. Patient resides at home with spouse. Patient utilizes a walker to assist with ambulation. Patient does not utilize oxygen at home. Patient requires assistance with some completion of ADL?s. Patient?s medical surrogate decision maker is spouse, Luther Brody. Patient?s PCP is Caleb Higgins. Patient does not participate with dialysis. Patient utilizes [facility] for medication services. surgical services coordinator will discuss discharge needs at an appropriate future time. No further intervention required at this time, medical social worker will be available to address any further concerns. Next of Kin: Luther Brody D/C Plan: Pending
--- NOTE | 2024-08-01 12:59 | PD.RESCONSUL ---
HPI Data of Consult Patient: known to practice within the last 3 years Consult date: 08/01/24 Requesting Physician: Guicho Blood MD Admitting Provider: Guicho Blood MD Attending Provider: Guicho Blood MD Primary Care Provider: Caleb Wen([facility])RAVI Consult Narrative Reason for consult: Cardiac arrest post ROSC History of present illness: HISTORY OF PRESENT ILLNESS : Patient is an 84-year-old Belgian-speaking male currently sedated, intubated and mechanically ventilated. History obtained from his with the use of healthcare teaching aide and chart review. Patient is an 84-year-old male with a past medical history significant for essential hypertension, CAD s/p stents, NIDDM [7.8], diabetic neuropathy, left BKA, CKD stage IIIb and CLL on ruxolitinib. Patient presented on 07/31 with cardiac arrest. According to patient's approximately 3 AM on Thursday morning patient woke up from his sleep gasping for air and saying he is feeling like he is about to . Subsequently patient stopped breathing and his said she initiated CPR and called the paramedics. Upon their arrival patient's EKG showed PEA and CPR was continued en route to the hospital. Patient was intubated in the ED and he continued to receive CPR eventually obtaining ROSC after a round of epinephrine. He was subsequently started on epinephrine and norepinephrine infusion and also received amiodarone 150 Mg IV x 1 and was subsequently transcutaneously paced due to bradycardia. He was then admitted to the ICU for cardiogenic shock and post cardiac arrest management and treatment. Of note patient had nuclear stress test done on March 05/2024 which showed normal EF of 61% and a Holter was also done which was normal. He also had an echo done on 07/16/2024 which showed an EF of 50-55%. Patient also had a recent hospitalization last month at [facility] and had another nuclear stress test done at the time which also showed a normal EF. Previously patient was evaluated in [place] for possible pacemaker but was unable to have the procedure done due to finances. Subsequently patient was transferred to a hospital in [place] and was being worked up for possible ablation but lost to follow-up. Patient then began follow-up in Dr. Bustillos's cardiology clinic. ED course: Patient's labs were significant for BUN 35, CR 2.3, WBC 31.8, Hb 11 and PLT 629, lactic acid 2.4 and magnesium 1.6. Troponin were initially elevated at 0.056 up trended to 1.759 and subsequently down trended to 1.366 patient had CTA C/A/P which showed bibasilar consolidation, multiple rib fractures and hemorrhage adjacent to his bladder. Patient received adenosine 150 Mg IV x 1 and noradrenaline and epinephrine infusion was started. During hospitalization patient had some runs of NSVT at around 9 AM this morning and his dopamine infusion rate was subsequently decreased. Cardiology was consulted for post cardiac arrest. HOME MEDICATIONS: ? Amlodipine 10 Mg p.o. daily ? ASA 81 Mg p.o. daily ? Atorvastatin 40 Mg p.o. every afternoon ? Clopidogrel 75 Mg p.o. daily ? Docusate 100 mg p.o. twice daily ? Ezetimibe 10 Mg p.o. daily ? Folic acid 1 Mg p.o. daily ? Gabapentin 300 mg p.o. twice daily ? Lisinopril 20 Mg p.o. daily ? Metformin 1 g p.o. twice daily ? Nitroglycerin 0.4 Mg SL as needed ? Ruxolitinib 10 Mg p.o. daily cc:: cc: Guicho Blood MD Review of Systems Review of Systems ROS Unobtainable: due to endotracheal tube Past Medical History Past Medical History Comments PMH COMMENT: Past medical history: ? Essential hypertension ? CAD s/p stents ? NIDDM ? Diabetic neuropathy ? Left BKA ? CKD stage IIIb ? CLL Allergies: NKFDA Social history: Occupational History: Retired. Previously worked in the [employer] Marital Status: Tobacco use: Denies ETHO use: Socially Illicit drug use: Denies Social History Note: lives with Exam Vital Signs Temp Pulse Resp BP Pulse Ox O2 Del Method FiO2 98.2 F 59 L 16 128/50 L 90 L Mechanical Ventilation 100 08/01/24 08:00 08/01/24 11:45 08/01/24 09:58 08/01/24 11:45 08/01/24 11:45 07/31/24 12:30 08/01/24 09:58 Narrative Exam Constitutional Intubated and mechanically ventillated HEENT Vision grossly intact. Patent nares. Trachea midline Respiratory Chest normal on inspection and mechanically ventilated breath sounds heard. RIJ catheter, exit site clean Cardiovascular S1 and S2 audible, RRR. No murmurs carotid bruit. No gross JVD. Abdominal Soft,obese BS + Genitourinary Normal to palpation Musculoskeletal Extremities tone within normal limits. Anasarca Neurological CN II - XII grossly intact. Extremity motor and sensation grossly intact. Skin Warm, dry and intact. Peeling of skin on R forearm with blisters Results Labs 08/01/24 05:30 08/01/24 05:30 Labs: Short CBC 07/31/24 08/01/24 Range/Units 16:23 05:30 WBC 50.9 H* D 31.8 H D (3.8-10.6) Thou/mm3 Hgb 11.4 L 11.0 L (13.5-16.0) g/dL Hct 33.8 L 32.3 L (41.0-53.0) % Plt Count 693 H 629 H D (140-440) Thou/mm3 BMP 07/31/24 07/31/24 08/01/24 16:23 18:40 05:30 Sodium 139 140 Potassium 3.5 D 4.3 D 4.2 Chloride 99 100 Carbon Dioxide 26.5 29.1 BUN 26 H 35 H Creatinine 1.7 H D 2.3 H D Glucose 330 H 243 H D Calcium 8.5 8.5 Cardiac Enzymes 07/31/24 08/01/24 08/01/24 Range/Units 16:23 00:31 09:03 Troponin I 1.546 H* D 1.759 H* D 1.366 H* D (0.0-0.045) ng/mL Liver Function 07/31/24 08/01/24 Range/Units 16:23 05:30 Total Bilirubin 0.4 0.3 (0.3-1.2) mg/dL AST 60 H 50 H (0-34) U/L ALT 54 H 48 (10-49) U/L Alkaline Phosphatase 66 58 (46-116) U/L Albumin 3.7 3.7 (3.4-4.8) gm/dL ABG Interpretation ABG results: 07/31/24 07/31/24 07/31/24 06:23 16:55 17:33 ABG pH 7.20 L Cancelled 7.34 L D ABG pCO2 68 H Cancelled 50 H D ABG pO2 81 L Cancelled 51 L* D ABG HCO3 27 H Cancelled 27 H ABG O2 Saturation 92 Cancelled 81 L ABG Base Excess -3 Cancelled 1 08/01/24 08/01/24 05:00 11:12 ABG pH 7.43 7.41 ABG pCO2 46 49 H ABG pO2 43 L* 47 L* ABG HCO3 31 H 30 H ABG O2 Saturation 77 L 79 L ABG Base Excess 6 H 5 H Quality Measures Quality Measures VTE prophylaxis Advance care planning discussed with:: spouse Medications Home Medications and Allergies Home Medications ?Medication ?Instructions ?Recorded ?Confirmed ?Type amlodipine 10 mg tablet 10 mg PO QDAY 07/31/24 07/31/24 History aspirin 81 mg chewable tablet 81 mg PO QDAY 07/31/24 07/31/24 History atorvastatin 40 mg tablet 40 mg PO QPM 07/31/24 07/31/24 History clopidogrel 75 mg tablet (Plavix) 75 mg PO QDAY 07/31/24 07/31/24 History docusate sodium 100 mg capsule 100 mg PO BID 07/31/24 07/31/24 History ezetimibe 10 mg tablet 10 mg PO QDAY 07/31/24 07/31/24 History folic acid 1 mg tablet 1 mg PO QDAY 07/31/24 07/31/24 History gabapentin 300 mg capsule 300 mg PO BID 07/31/24 07/31/24 History lisinopril 20 mg tablet 20 mg PO QDAY 07/31/24 07/31/24 History metformin 1,000 mg tablet 1,000 mg PO BIDWMEAL 07/31/24 07/31/24 History nitroglycerin 0.4 mg sublingual 0.4 mg buccal Q5MIN PRN Chest Pain 07/31/24 07/31/24 History tablet ruxolitinib 10 mg tablet (Jakafi) 10 mg PO QDAY 07/31/24 07/31/24 History Allergies Allergy/AdvReac Type Severity Reaction Status Date / Time No Known Allergies Allergy Verified 07/31/24 06:44 Visit Medications Acetaminophen (Acetaminophen 325 Mg Tablet) 650 mg PO Q4HR PRN PRN Reason: Pain 1-3 or Temp >99 Stop: 08/30/24 11:39 Acetaminophen (Acetaminophen Supp 650 Mg Supp) 650 mg LA Q4HR PRN PRN Reason: Pain 1-3 or Temp >99 Stop: 08/30/24 11:39 Albuterol/Ipratropium (Albuterol/Ipratropium (Duoneb) Rt Gloria 3 Ml Nebu) 3 ml INH Q6HRRT [facility] Stop: 08/31/24 12:59 Aspirin (Aspirin 81 Mg Chew) 81 mg NG QDAY [facility] Stop: 08/31/24 11:44 Last Admin: 08/01/24 12:33 Dose: 81 mg Atorvastatin Calcium (Atorvastatin Calcium 20 Mg Tablet) 40 mg NG QPM [facility] Stop: 08/31/24 20:59 Azithromycin (Azithromycin 250 Mg Tablet) 500 mg PO QDAY [facility] Stop: 08/08/24 10:14 Last Admin: 08/01/24 10:30 Dose: 500 mg Clopidogrel Bisulfate (Clopidogrel Bisulfate 75 Mg Tablet) 75 mg NG QDAY [facility] Stop: 08/31/24 11:44 Last Admin: 08/01/24 12:33 Dose: 75 mg Dextrose (Dextrose 50%-Water Inj 50 Ml Syringe) 25 ml IV Q15MIN PRN PRN Reason: BG 50-70 responsive npo pt Stop: 08/30/24 17:51 Dextrose (Dextrose 50%-Water Inj 50 Ml Syringe) 50 ml IV Q15MIN PRN PRN Reason: BG <50 OR BG <70 & pt unresponsive Stop: 08/30/24 17:51 Ezetimibe (Ezetimibe 10 Mg Tablet) 10 mg NG QDAY [facility] Stop: 08/31/24 11:44 Last Admin: 08/01/24 12:35 Dose: 10 mg Enoxaparin Sodium (Enoxaparin Sod Inj 40 Mg/0.4 Ml Syringe) 40 mg SC QDAY [facility] Stop: 08/15/24 08:59 Last Admin: 08/01/24 08:21 Dose: 40 mg Glucagon (Glucagon Inj 1 Mg Vial) 1 mg IM Q15MIN PRN PRN Reason: BG <70, and no IV access Midazolam HCl (Versed Pf Inj In Ns Premix) 100 mg in 100 mls @ 1 mls/hr IV .Q24H PRN; Protocol PRN Reason: PER PROTOCOL Stop: 08/05/24 06:30 Last Titration: 07/31/24 15:45 Dose: 0 mg/hr, 0 mls/hr Epinephrine HCl 16 mg/ Sodium (Chloride) 250 mls @ 3.402 mls/hr IV .Q24H PRN; Protocol PRN Reason: Per Protocol Stop: 08/30/24 06:34 Last Titration: 07/31/24 15:45 Dose: 0 mcg/kg/min, 0 mls/hr Propofol (Diprivan Ivpb) 1,000 mg in 100 mls @ 2.177 mls/hr IV .Q24H PRN; Protocol PRN Reason: PER PROTOCOL Stop: 08/30/24 06:47 Last Admin: 08/01/24 07:41 Dose: 20 mcg/kg/min, 8.709 mls/hr Norepinephrine Bitartrate (Levophed In Ns 16mg/250ml) 16 mg in 250 mls @ 3.402 mls/hr IV .Q24H PRN; Protocol PRN Reason: PER protocol Stop: 08/30/24 07:06 Last Titration: 08/01/24 09:23 Dose: 0.05 mcg/kg/min, 3.402 mls/hr Fentanyl Citrate (Sublimaze Inj 2,500 Mcg/250 Ml Bag) 2,500 mcg in 250 mls @ 2.5 mls/hr IV .Q24H PRN; Protocol PRN Reason: PER PROTOCOL Stop: 08/05/24 16:02 Last Admin: 08/01/24 08:39 Dose: 275 mcg/hr, 27.5 mls/hr Ceftriaxone Sodium/Dextrose (Rocephin/D5w 1gm Iv Premix) 50 mls @ 100 mls/hr IV QDAY [facility] Stop: 08/07/24 16:25 Last Admin: 08/01/24 08:19 Dose: 100 mls/hr Dopamine HCl/Dextrose (Intropin In D5w Ivpb) 400 mg in 250 mls @ 15.544 mls/hr IV .Q16H5M PRN; Protocol PRN Reason: HR< 50 Stop: 08/30/24 15:15 Last Titration: 08/01/24 06:00 Dose: 5 mcg/kg/min, 15.544 mls/hr Amiodarone HCl/Dextrose (Nexterone Ivpb) 360 mg in 200 mls @ 33.333 mls/hr IV .Q6H ONE Stop: 08/01/24 15:03 Last Admin: 08/01/24 09:20 Dose: 33.333 mls/hr Amiodarone HCl/Dextrose (Nexterone Ivpb) 360 mg in 200 mls @ 16.667 mls/hr IV .Q12H [facility] Stop: 08/02/24 15:03 Insulin Human Lispro (Insulin Lispro (Admelog) 1 Unit/0.01 Ml Unit) 0 unit SC Q6HR [facility]; Protocol Stop: 08/30/24 17:59 Last Admin: 08/01/24 12:33 Dose: 3 unit Home Medication- Please Speak With Patient Caregiver To Have Rx Brought To [facility] 10 mg PO QDAY [facility]; Protocol Stop: 08/31/24 11:44 Last Admin: 08/01/24 12:34 Dose: Not Given Pantoprazole Sodium (Pantoprazole Inj 40 Mg Vial) 40 mg IVP QDAY [facility] Stop: 08/31/24 08:59 Last Admin: 08/01/24 08:21 Dose: 40 mg Discontinued Medications Albuterol/Ipratropium (Albuterol/Ipratropium (Duoneb) Rt Gloria 3 Ml Nebu) 3 ml INH X1 ONE Stop: 08/01/24 09:46 Last Admin: 08/01/24 09:55 Dose: 3 ml Aspirin (Aspirin 81 Mg Chew) 81 mg PO QDAY [facility] Stop: 08/31/24 11:44 Atorvastatin Calcium (Atorvastatin Calcium 20 Mg Tablet) 40 mg PO QPM [facility] Stop: 08/31/24 20:59 Clopidogrel Bisulfate (Clopidogrel Bisulfate 75 Mg Tablet) 75 mg PO QDAY [facility] Stop: 08/31/24 11:44 Ezetimibe (Ezetimibe 10 Mg Tablet) 10 mg PO QDAY [facility] Stop: 08/31/24 11:44 Amiodarone HCl/Dextrose (Nexterone Ivpb) 150 mg in 100 mls @ 600 mls/hr IV .Q10M ONE; Protocol Stop: 07/31/24 06:14 Last Infusion: 07/31/24 06:30 Dose: Infused Vancomycin HCl 1,000 mg/ (Sodium Chloride) 250 mls @ 150 mls/hr IV X1 ONE Stop: 07/31/24 12:02 Last Admin: 07/31/24 12:09 Dose: 150 mls/hr Piperacillin Sod/Tazobactam (Sod 3.375 gm/ Sodium Chloride) 50 mls @ 100 mls/hr IV X1 ONE Stop: 07/31/24 10:51 Last Infusion: 07/31/24 11:38 Dose: Infused Potassium Chloride (Kcl Ivpb) 10 meq in 100 mls @ 100 mls/hr IV Q1H [facility] Stop: 07/31/24 15:45 Last Admin: 07/31/24 14:33 Dose: Not Given Potassium Chloride (Kcl Ivpb) 20 meq in 100 mls @ 50 mls/hr IV Q2H [facility] Stop: 07/31/24 18:13 Last Admin: 07/31/24 16:54 Dose: 50 mls/hr Dopamine HCl/Dextrose (Intropin In D5w Ivpb) 400 mg in 250 mls @ 15.544 mls/hr IV .Q16H5M [facility]; Protocol Stop: 08/30/24 15:15 Last Admin: 07/31/24 16:16 Dose: Not Given Dopamine HCl/Dextrose (Intropin In D5w Ivpb) 400 mg in 250 mls @ 15.544 mls/hr IV .Q16H5M PRN; Protocol PRN Reason: Bradycardia <50 and MAP <65 Stop: 08/30/24 15:15 Azithromycin 500 mg/ Sodium (Chloride) 250 mls @ 250 mls/hr IV QDAY [facility] Stop: 08/07/24 16:25 Last Admin: 08/01/24 10:30 Dose: Not Given Magnesium Sulfate (Magnesium Sulfate Ivpb) 4 gm in 50 mls @ 12.5 mls/hr IV X1 ONE Stop: 08/01/24 12:08 Last Admin: 08/01/24 08:20 Dose: 12.5 mls/hr Amiodarone HCl/Dextrose (Nexterone Ivpb) 150 mg in 100 mls @ 600 mls/hr IV .Q10M ONE Stop: 08/01/24 09:14 Last Admin: 08/01/24 09:10 Dose: 600 mls/hr Potassium Chloride (Potassium Chloride 10% 20 Meq/15 Ml Udc) 40 meq NG X1 ONE Stop: 07/31/24 14:13 Last Admin: 07/31/24 15:57 Dose: 40 meq Assessment & Plan Plan Patient is an 84-year-old Belgian-speaking male currently sedated, intubated and mechanically ventilated. History obtained from his with the use of healthcare teaching aide and chart review. Patient is an 84-year-old male with a past medical history significant for essential hypertension, CAD s/p stents, NIDDM [7.8], diabetic neuropathy, left BKA, CKD stage IIIb and CLL on ruxolitinib. Patient presented on 07/31 with cardiac arrest.Cardiology was consulted for post cardiac arrest. 1. Postcardiac arrest 2. PEA 3. NSTEMI likely type II 4. NSVT 5. Cardiogenic shock Patient went into cardiac arrest at home and subsequently obtained ROSC in the ED after successive rounds of CPR, intubation and epinephrine. Patient's initial heart rate send showed PEA and EKG on arrival showed ventricular pacing with rates of [address] changes. Currently patient is in sinus rhythm with bouts of NSVT <30 seconds. Initially patient's troponin was elevated at 0.056 up trended to 1.759 and subsequently down trended to 1.366 Patient was initially on norepinephrine, epinephrine and dopamine infusion. Epinephrine infusion was discontinued today and dopamine down trended. Transthoracic echocardiogram completed on 08/01 findings include: Limited and suboptmal images - pt intubated and sedated. Normal LV size and function. Mild LVH. Estimated EF 55-60% Normal RV size and function. Mild biatrial dilataion Mild MAC. Mild AV sclerosis without stenosis. Midl biatrial dilatation: Mild TR. Midly dilated IVC. Pleural effusion present. Plan: ? No need to continue heparin infusion ? No need to further trend troponin ? Continue blood pressure support with norepinephrine and dopamine ? Recommend amiodarone infusion for preventing any further bouts of NSVT and atrial fibrillation. ? Recommend to continue aspirin and clopidogrel and high intensity statin 6. CAD s/p stents 7. Hyperlipidemia Patient has a history of stents in the past. Lipid profile from last week showed triglycerides 101, cholesterol 77 and LDL 27 Plan: ? Continue high intensity statin ? Recommend to continue aspirin and clopidogrel to prevent stent thrombosis 8. NIDDM type II [7.8] 9. Diabetic neuropathy 10. Left BKA On admission HbA1c 7.8 patient's home medication metformin 1 g p.o. twice daily. Continue management as per primary team 11. DEE on CKD stage IIIb On admission CR 2.3, baseline CR between 1.7?9. Continue management as per primary team 12. CLL Patient was diagnosed earlier this year in [place]. Home medication ruxolitinib 13. Pneumonia DDx aspiration, CAP, hospital-acquired pneumonia Patient was started on ceftriaxone and azithromycin IV. Continue management as per primary team Continue rest of management as per primary team. We are grateful to be able to participate in Mr. Culp's care. Thank you for the consult Plan of care discussed with attending Transmission And Protection Engineer, Dr Apollo Butterfield MD PGY 1 Attending Provider Attestation/Addendum 84-year-old male known to me from my clinic since January 2024 presented to the hospital 07/31/2024 for pneumonia after cardiac arrest. Patient apparently woke up around 3 AM gasping for had an said he was about to and patient suddenly stopped breathing initiated CPR and called EMS. Patient briefly had ROSC but after the patient went asystole and PEA again as per the documentation. Patient never had a VT or VF and was not shocked. Patient was resisted en route to the emergency department and eventually obtained ROSC when he reached the ED. Total amount of downtime is unknown. Patient was started on epinephrine on admission as well as amiodarone drip initially. Patient apparently had some bradycardia on presentation for which she was transcutaneously placed and eventually was started on dopamine. With dopamine patient did have few runs of NSVT this morning and dopamine was prescribed and is now in normal sinus rhythm at 60 to 70 bpm without any acute ST-T changes. Cardiology was consulted s/p cardiac arrest. Initial labs in the emergency department showed WBC elevated at 42,000 with some left shift, hemoglobin stable at 12 and platelets are elevated at 679 could be reactive thrombocytosis. Initial BMP showed sodium of 142 and potassium was low at 2.6 and magnesium was low at 1.6. Initial troponin was 0.056 and history was 37 BUN/creatinine appeared normal at 70 and 1.1 but estimated creatinine clearance was only 41 BNP was 304. LFTs appeared normal recent TG was 101 cholesterol 77 LDL 27 and HDL of 30 on 07/25/2024. Patient should junctional rhythm without any evidence of any acute ST-T changes with slightly wide QRS in the setting of hypokalemia. Patient in the left lactic acidosis with lactate of 4.8 glucose was elevated at 300-3 50 and admission. Patient is in DEE now after the course with a BUN of 35 and creatinine of 2.43. Lactate slowly improving at 2.4 this morning. Troponins peaked at 1.759 and downtrending now. Blood gas initially showed a pH of 7.2 and a pCO2 of 68 and a pO2 of 81 and bicarb of 27 on 100% FiO2. U tox was negative and urinalysis showed some proteinuria. Assessment and plan: Patient with history status post CAD s/p PCI with evidence of previously i[employer], history of left BKA, peripheral vascular disease, essential hypertension diabetes mellitus type 2 uncontrolled, CLL followed nava Sequeira who presented to the hospital after a cardiac arrest. Patient was admitted earlier to the hospital in [place] earlier this year in 2019 for that he will need a pacemaker and also a cardiac catheterization. Patient did have acute kidney injury and because of insurance issue patient was transferred to [facility]. Patient was adequately treated for his acute kidney injury and was not recommended any cardiac catheterization at that point of time given his kidney injury and was recommended to follow-up as outpatient. Patient did not come to my office in January 2024 and patient was scheduled for an echo and Lexiscan stress test. Echo showed normal LV and RV function with grade 1 diastolic dysfunction along with LVH.. Stress test in February 2024 was negative. Patient did have a 3-month follow-up in May at which point he was doing well but then he was admitted again at [facility] apparently and had the Lexiscan stress test which was negative for any stress-induced ischemia and was recommended to follow-up as outpatient he was last seen on June 15, 2024. Patient did explain to me about some questionable pacemaker and hence Holter monitoring was completed which did not show any evidence of any acute arrhythmias or pauses or heart blocks.. Patient did not follow-up after that. Patient presented to the hospital 07/31/2024 after a cardiac arrest status post resuscitation with unknown downtime. Echocardiogram was repeated today on 08/01/2024 which showed limited and suboptimal images as patient is intubated and sedated. Normal LV size and function with mild LVH and EF of 55 to 60%. Normal RV size and function. The mild biatrial dilatation, mild aortic valve sclerosis, mild TR, mildly dilated IVC along with pleural effusion. Patient with 2 codes and both appeared to be PEA and was asystole without any evidence of VT or VF and did not receive any cardioversion.. Patient's troponin also peaked only at 1.79 and are downtrending. --- Based on the normal echocardiogram from today and recent need to stress scans x 2 in February and May 2024 along with normal Holter monitoring, EKG without any acute ischemic changes. Unlikely cardiac etiology and as patient also had PEA arrest without a VT or VF. --- Agree with discontinuing the dopamine to avoid further NSVT and patient is now has normal complex rhythm and the heart rate is between 60 to 80 bpm. Continue pressor support with Levophed and recommend to taper off the epinephrine. ---Unclear etiology of the cardiac arrest at the present moment could be secondary to hypoxic or hypercapnic respiratory failure as a pCO2 was elevated initially and is improving now. Patient also has a question of aspiration pneumonia. --- Patient with acute kidney injury and lactic acidosis after the the cardiorespiratory arrest. Patient received aggressive IV fluids and appears to be bloated at the present point of time with significant upper extremity as well as some lower extremity edema. Recommend to stop IV fluids and continue diuresis patient and monitor strict metoprolol. Patient will need possible temporary dialysis versus permanent dialysis if kidney function continues to worsen with diuresis. --Severe hypokalemia and hypomagnesemia on arrival and recommend to continue to replace electrolytes and keep potassium greater than 4 magnesium greater than 2.0 at all times. --- Patient apparently is DNR at the present point of time and is already intubated. Spoke to the at the bedside and explained the critical condition of the patient and all the workup done for now. Overall prognosis is poor and will wait to see the neurological recovery as Adderall is not clear. There is a high probability of sudden, clinically significant or life threatening deterioration in the patient condition which required the highest level of physician preparedness to intervene urgently. I have personally spent 65 minutes of critical care time, exclusive of time spent on any procedures, in evaluation and management of this critically ill patient. Management of rest of the medical conditions as per primary team and other consultants. Thank you for the consult and allowing me to participate in the care of the patient. Cardiology will continue to follow. John Bustillos M.D. Interventional Cardiology
[2024-08-01] MEDS: AMIODARONE 360 MG IVPB 360 MG/200 ML BAG 16.667 MG IV (15:53)
[2024-08-01] MEDS: fentaNYL 2,500 MCG/250 ML BAG 2,500 MCG/250 ML BAG 22.5 MCG IV (17:39)
[2024-08-01 18:19] LABS: Base Excess 5 (-3-3); HCO3 29 mEq/L (20-26); Inspired Oxygen, FIO2 70 %; O2 Saturation 86 % (91-98); PCO2 41 mmHg (32.0-48.0); pH, Arterial 7.46 (7.35-7.45)
[2024-08-01 18:21] LABS: Allen Test Performed/OK; Puncture Site Left Radial
[2024-08-01 18:22] LABS: PO2 53 mmHg (83-108)
[2024-08-01] MEDS: ATORVASTATIN CALCIUM 20 MG TABLET 40 MG NG (21:02)
[2024-08-01] MEDS: PROPOFOL 1,000 MG IVPB 1,000 MG/100 ML VIAL 4.355 MG IV (22:18)
[2024-08-02] VITALS (37 sets, daily range): BP systolic 88–152; BP diastolic 42–65; PULSE 39–76; RESP 0–20; TEMP 36.7–37.1; O2SAT 89–98; BMI 31.0
[2024-08-02] MEDS: INSULIN LISPRO (AdmeLOG) 1 UNIT/0.01 ML UNIT SC ×2 (00:22→05:41)
[2024-08-02] MEDS: ALBUTEROL/IPRATROPIUM (Duoneb) RT SOL 3 ML NEBU INH ×2 (00:46→06:33)
[2024-08-02] MEDS: Norepinephrine/NS 16mg/250ml 16 MG/250 ML BAG 6.124 MG IV (02:41)
[2024-08-02] MEDS: AMIODARONE 360 MG IVPB 360 MG/200 ML BAG 16.667 MG IV (04:00)
[2024-08-02] MEDS: fentaNYL 2,500 MCG/250 ML BAG 2,500 MCG/250 ML BAG 22.5 MCG IV (04:00)
[2024-08-02 04:48] LABS: Base Excess 3 (-3-3); HCO3 27 mEq/L (20-26); Inspired Oxygen, FIO2 70 %; O2 Saturation 86 % (91-98); PCO2 39 mmHg (32.0-48.0); pH, Arterial 7.45 (7.35-7.45)
[2024-08-02 04:52] LABS: PO2 54 mmHg (83-108)
[2024-08-02 04:53] LABS: Allen Test Performed/OK; Puncture Site Right Radial
[2024-08-02 05:39] LABS: Basophils # (Auto) 0.1 Thou/mm3 (0.0-0.2); Basophils % (Auto) 0 % (0-2.5); Eosinophils % (Auto) 0 % (0-10); Hematocrit 28.5 % (41.0-53.0); Hemoglobin 9.5 g/dL (13.5-16.0); Immature Granulocytes % (Auto) 2 % (0-0); Immature Granulocytes Auto 0.81 Thou/mm3 (0.00-0.00); Lymphocytes # (Auto) 2.5 Thou/mm3 (1.0-4.8); Lymphocytes % (Auto) 7 % (10-50); Mean Corpuscular HGB Conc 33.3 g/dl (31.0-37.0); Mean Corpuscular Volume 114 fL (80-100); Monocytes # (Auto) 2.7 Thou/mm3 (0.0-0.8); Monocytes % (Auto) 8 % (0-12); Neutrophils # (Auto) 28.5 Thou/mm3 (1.8-7.7); Neutrophils % (Auto) 82 % (37-80); Nucleated Red Blood Cell # 0.44 Thou/mm3 (0.00-0.00); Nucleated Red Blood Cell % 1 /100 WBC (0); Platelet Count 521 Thou/mm3 (140-440); RDW Standard Deviation 68.2 fL (35.1-43.9)
[2024-08-02 05:42] LABS: White Blood Count 34.6 Thou/mm3 (3.8-10.6)
--- NOTE | 2024-08-02 06:00 | XR_ITS ---
Examination: AP chest single view Technique one AP portable semiupright chest single view Exam date and time: August 02, 2024 at 0557 hours INDICATIONS: Status post cardiac arrest postintubation Comparison August 01, 2024 FINDINGS: Diffuse right lung and left base pneumonia consider aspiration pneumonia Tracheal tube tip 4.2 cm above abraham Mild prominence of ventricle Orogastric tube coiled in the stomach Right internal jugular central line tip SVC no pneumothorax IMPRESSION: Bilateral pneumonia, consider aspiration pneumonia Tracheal tube tip 4.2 cm above abraham
[2024-08-02 06:40] LABS: Alanine Aminotransferase 303 U/L (10-49); Albumin, Serum 3.3 gm/dL (3.4-4.8); Albumin/Globulin Ratio 1.4 (1.2-2.2); Alkaline Phosphatase 57 U/L (46-116); Anion Gap 11 (7-16); Aspartate Amino Transferase 402 U/L (0-34); BUN/Creatinine Ratio 12 Ratio (12-20); Bilirubin,Total 0.4 mg/dL (0.3-1.2); Blood Urea Nitrogen 53 mg/dL (9-23); Calcium 7.7 mg/dL (8.3-10.6); Calcium (Corrected) 8.3 mg/dL (8.5-10.1); Carbon Dioxide 26.2 mMol/L (20.0-31.0); Chloride 100 mMol/L (98-107); Creatinine (Component) 4.4 mg/dL (0.6-1.3); Estimated Creatinine Clearance 12.1 mL/min (>60); Globulin 2.4 gm/dL (2.3-3.5); Glucose 197 mg/dL (74-106); Magnesium 2.4 mg/dL (1.6-2.6); Osmolality,Calculated 293 (275-295); Phosphorous 3.6 mg/dL (2.4-5.1); Potassium 4.8 mMol/L (3.4-5.1); Sodium 137 mMol/L (136-145); Total Protein 5.7 gm/dL (5.7-8.2); eGFR 12 See Note
--- NOTE | 2024-08-02 07:04 | EKG_ITS ---
[facility] Test Date: 2024-08-02 Pat Name: JONNY HUDSON [facility] Coat Checker: ADELA : 1940 Requested By: Shilpa Fregoso Order Number: [id number] Reading MD: Shilpa Fregoso Measurements Intervals [place] Rate: 38 P: WI: QRS: -70 QRSD: 135 T: 166 QT: 591 QTc: 472 Interpretive Statements UNCERTAIN REGULAR RHYTHM RIGHT BUNDLE BRANCH BLOCK LEFT ANTERIOR FASCICULAR BLOCK POSSIBLE ANTERIOR MYOCARDIAL INFARCTION , OF INDETERMINATE AGE MODERATE T-WAVE ABNORMALITY, CONSIDER LATERAL ISCHEMIA MODERATE T-WAVE ABNORMALITY, CONSIDER INFERIOR ISCHEMIA Compared to ECG 07/31/2024 06:20:45 Right bundle-branch block now present Left anterior fascicular block now present Myocardial infarct finding now present T-wave abnormality now present Possible ischemia now present Idioventricular rhythm no longer present /store/S0/[id number].pdf
--- NOTE | 2024-08-02 07:40 | CHAP ---
Code blue. Prayed for patient and staff outside room.
--- NOTE | 2024-08-02 07:49 | EKG_ITS ---
[facility] Test Date: 2024-08-02 Pat Name: JONNY HUDSON [facility] Program Manager: BRYAN : 1940 Requested By: Shilpa Fregoso Order Number: [id number] Reading MD: Shilpa Fregoso Measurements Intervals [place] Rate: 55 P: MD: QRS: 57 QRSD: 183 T: 245 QT: 528 QTc: 507 Interpretive Statements ATRIAL FIBRILLATION WITH SLOW VENTRICULAR RESPONSE LEFT BUNDLE BRANCH BLOCK Compared to ECG 08/02/2024 07:10:06 Left bundle-branch block now present Right bundle-branch block no longer present Left anterior fascicular block no longer present Myocardial infarct finding no longer present T-wave abnormality no longer present Possible ischemia no longer present /store/S0/[id number].pdf
--- NOTE | 2024-08-02 07:57 | EVENTNT_ITS ---
<Statement entered by Guicho Blood MD - 08/06/24 05:43> I agree with the above documentation. I was present at bedside with the patient demise and confirmed lack of pulse, no heart sounds/breathing sounds with discontinuation of mechanical ventilation, and no cranial nerve reflexes. Documentation for date of: 08/02/24 Event Note Event Note: At 7:45 AM patient had a cardiac arrest, asystole and CODE BLUE was activated, before that he had an episode of bradycardia in the 40s 50s. Patient has received epinephrine and atropine, his heart rate improved for a while. His was called during the code, nurse Susan Mauricio and Dr. Guajardo reported to the about his condition and to clarify regarding his CODE STATUS. She was explained that the patient might need coronary angiogram and pacemaker placement. His refused all interventions, which was confirmed both by [place] Citizen-speaking nurses Hang and Susan. Patient's CODE STATUS was changed to DNR. But then his condition significantly worsened, he became asystolic and at the 8:13 AM patient was pronounced by Dr. Blood.
--- NOTE | 2024-08-02 08:15 | DES_ITS ---
<Statement entered by Guicho Blood MD - 08/06/24 05:43> I have reviewed and agree with documentation as per above. pronounced examination confirmed by myself. Documentation for date of: 08/02/24 Pronouncement Note Date and Time of Date of : 08/02/24 Time of : 08:13 Additional Data Confirmation of : no pulse, no respirations, no heart sounds and pupils fixed and dilated Family: contacted Attending/PCP notified?: Yes Attending physician: Guicho Blood MD Was code activated?: No Autopsy requested?: No customs examiner notified?: No Organ bank notified?: No Advance directives: No
--- NOTE | 2024-08-02 08:22 | PC.NURSE ---
late entry was called by Hang and Doctor Bennett to make aware of code that began at approx 0745, refer to code sheet, pt was limited code. Hang notified me of possible change in code status. I talked to the , she told me to not let him suffer anymore. To not do anything else. I made her aware that the PT needed pacing and Dr. Blood was about to place a transvenous pacer in the groin and she told me to stop. She said in [place], nada, nada mas . She said nothing more. She said that she would arrive soon. I let her know that he may not make it until she arrived. She said ok. Dr. Blood and other doctors made aware. No further interventions performed.
--- NOTE | 2024-08-02 08:24 | PC.NURSE ---
Forrest made aware of pt She is waiting for her ride to bring her here
[2024-08-02 08:33] LABS: Troponin I 1.259 ng/mL (0.0-0.045)
--- NOTE | 2024-08-02 08:45 | PC.SS ---
Update: Attending informed FORENSIC ENGINEER that patient has .
--- NOTE | 2024-08-02 10:15 | CHAP ---
Prayed with family at the of a loved one.
--- NOTE | 2024-08-02 10:26 | PD.RESPRO ---
Documentation for date of: 08/02/24 Subjective Subjective Interval history: This morning pt had an episode of bradycardia in the 40s 50s. Patient has received epinephrine and atropine, his heart rate improved for a while. Plan was to place to place a tempoarary pacemaker. At 7:45 AM patient had a cardiac arrest, asystole and CODE BLUE was activated, His was called during the code, nurse Susan Mauricio and Dr. Guajardo reported to the about his condition and to clarify regarding his CODE STATUS. She was explained that the patient might need coronary angiogram and pacemaker placement. His refused all interventions, which was confirmed both by Maori-speaking nurses Hang and Susan. Patient's CODE STATUS was changed to DNR. But then his condition significantly worsened, he became asystolic and at the 8:13 AM patient was pronounced by Dr. Blood. Exam Vital Signs Temp Pulse Resp BP Pulse Ox O2 Del Method FiO2 98.1 F 56 L 16 104/58 L 93 L Mechanical Ventilation 70 08/02/24 08:03 08/02/24 08:03 08/02/24 06:34 08/02/24 07:30 08/02/24 07:30 07/31/24 12:30 08/02/24 07:30 Narrative Exam Pupils fixed and dialted, Absent breath sounds, no pulse palpated Objective Labs 08/02/24 05:14 08/02/24 05:14 Labs: Laboratory Results - last 24 hr 08/01/24 08/01/24 08/01/24 10:30 11:12 17:06 WBC RBC Hgb Hct MCV MCH MCHC RDW Std Deviation Plt Count Neut % (Auto) Lymph % (Auto) Hitchcock % (Auto) Eos % (Auto) Baso % (Auto) Neut # (Auto) Lymph # (Auto) [place]cock # (Auto) Eos # (Auto) Baso # (Auto) Immature Gran # (Auto) Absolute Nucleated RBC Immature Gran % Nucleated RBC % Puncture Site Cancelled Right Radial Cancelled ABG pH Cancelled 7.41 Cancelled ABG pCO2 Cancelled 49 H Cancelled ABG pO2 Cancelled 47 L* Cancelled ABG HCO3 Cancelled 30 H Cancelled ABG O2 Saturation Cancelled 79 L Cancelled ABG Base Excess Cancelled 5 H Cancelled Oxygen Liter Flow Cancelled Cancelled FiO2 Cancelled 94 Cancelled Sodium Potassium Chloride Carbon Dioxide Anion Gap BUN Creatinine Estim Creat Clear Calc eGFR BUN/Creatinine Ratio Glucose Calculated Osmolality Calcium Corrected Calcium Phosphorus Magnesium Total Bilirubin AST ALT Alkaline Phosphatase Troponin I Total Protein Albumin Globulin Albumin/Globulin Ratio 08/01/24 08/02/24 08/02/24 17:46 04:32 05:14 WBC 34.6 H RBC 2.50 L Hgb 9.5 L Hct 28.5 L MCV 114 H MCH 38.0 H MCHC 33.3 RDW Std Deviation 68.2 H Plt Count 521 H D Neut % (Auto) 82 H Lymph % (Auto) 7 L Hitchcock % (Auto) 8 Eos % (Auto) 0 Baso % (Auto) 0 Neut # (Auto) 28.5 H Lymph # (Auto) 2.5 Hitchcock # (Auto) 2.7 H Eos # (Auto) 0.0 Baso # (Auto) 0.1 Immature Gran # (Auto) 0.81 H Absolute Nucleated RBC 0.44 H Immature Gran % 2 H Nucleated RBC % 1 H Puncture Site Left Radial Right Radial ABG pH 7.46 H 7.45 ABG pCO2 41 39 ABG pO2 53 L* 54 L* ABG HCO3 29 H 27 H ABG O2 Saturation 86 L 86 L ABG Base Excess 5 H 3 Oxygen Liter Flow FiO2 70 70 Sodium 137 Potassium 4.8 D Chloride 100 Carbon Dioxide 26.2 Anion Gap 11 BUN 53 H Creatinine 4.4 H* D Estim Creat Clear Calc 12.1 L eGFR 12 L* BUN/Creatinine Ratio 12 Glucose 197 H Calculated Osmolality 293 Calcium 7.7 L Corrected Calcium 8.3 L Phosphorus 3.6 Magnesium 2.4 Total Bilirubin 0.4 AST 402 H ALT 303 H Alkaline Phosphatase 57 Troponin I Total Protein 5.7 Albumin 3.3 L Globulin 2.4 Albumin/Globulin Ratio 1.4 08/02/24 07:54 WBC RBC Hgb Hct MCV MCH MCHC RDW Std Deviation Plt Count Neut % (Auto) Lymph % (Auto) Hitchcock % (Auto) Eos % (Auto) Baso % (Auto) Neut # (Auto) Lymph # (Auto) Hitchcock # (Auto) Eos # (Auto) Baso # (Auto) Immature Gran # (Auto) Absolute Nucleated RBC Immature Gran % Nucleated RBC % Puncture Site ABG pH ABG pCO2 ABG pO2 ABG HCO3 ABG O2 Saturation ABG Base Excess Oxygen Liter Flow FiO2 Sodium Potassium Chloride Carbon Dioxide Anion Gap BUN Creatinine Estim Creat Clear Calc eGFR BUN/Creatinine Ratio Glucose Calculated Osmolality Calcium Corrected Calcium Phosphorus Magnesium Total Bilirubin AST ALT Alkaline Phosphatase Troponin I 1.259 H* Total Protein Albumin Globulin Albumin/Globulin Ratio ABG Interpretation ABG results: 07/31/24 07/31/24 07/31/24 06:23 16:55 17:33 ABG pH 7.20 L Cancelled 7.34 L D ABG pCO2 68 H Cancelled 50 H D ABG pO2 81 L Cancelled 51 L* D ABG HCO3 27 H Cancelled 27 H ABG O2 Saturation 92 Cancelled 81 L ABG Base Excess -3 Cancelled 1 08/01/24 08/01/24 08/01/24 05:00 10:30 11:12 ABG pH 7.43 Cancelled 7.41 ABG pCO2 46 Cancelled 49 H ABG pO2 43 L* Cancelled 47 L* ABG HCO3 31 H Cancelled 30 H ABG O2 Saturation 77 L Cancelled 79 L ABG Base Excess 6 H Cancelled 5 H 08/01/24 08/01/24 08/02/24 17:06 17:46 04:32 ABG pH Cancelled 7.46 H 7.45 ABG pCO2 Cancelled 41 39 ABG pO2 Cancelled 53 L* 54 L* ABG HCO3 Cancelled 29 H 27 H ABG O2 Saturation Cancelled 86 L 86 L ABG Base Excess Cancelled 5 H 3 Quality Measures Quality Measures VTE prophylaxis Advance care planning discussed with:: spouse Assessment & Plan Assessment Current Active Medications: Generic Name Dose Route Start Last Admin Trade Name Freq PRN Reason Stop Dose Admin Acetaminophen 650 mg 07/31/24 11:40 Acetaminophen 325 Mg Tablet PO 08/30/24 11:39 Q4HR PRN Pain 1-3 or Temp >99 Acetaminophen 650 mg 07/31/24 11:40 Acetaminophen Supp 650 Mg Supp MD 08/30/24 11:39 Q4HR PRN Pain 1-3 or Temp >99 Albuterol/Ipratropium 3 ml 08/01/24 13:00 08/02/24 06:33 Albuterol/Ipratropium (Duoneb) Rt Gloria 3 Ml Nebu INH 08/31/24 12:59 3 ml Q6HRRT LANG Administration Aspirin 81 mg 08/01/24 11:45 08/01/24 12:33 Aspirin 81 Mg Chew NG 08/31/24 11:44 81 mg QDAY LANG Administration Atorvastatin Calcium 40 mg 08/01/24 21:00 08/01/24 21:02 Atorvastatin Calcium 20 Mg Tablet NG 08/31/24 20:59 40 mg QPM LANG Administration Clopidogrel Bisulfate 75 mg 08/01/24 11:45 08/01/24 12:33 Clopidogrel Bisulfate 75 Mg Tablet NG 08/31/24 11:44 75 mg QDAY LANG Administration Dextrose 25 ml 07/31/24 17:52 Dextrose 50%-Water Inj 50 Ml Syringe IV 08/30/24 17:51 Q15MIN PRN BG 50-70 responsive npo pt Dextrose 50 ml 07/31/24 17:52 Dextrose 50%-Water Inj 50 Ml Syringe IV 08/30/24 17:51 Q15MIN PRN BG <50 OR BG <70 & pt unresponsive Ezetimibe 10 mg 08/01/24 11:45 08/01/24 12:35 Ezetimibe 10 Mg Tablet NG 08/31/24 11:44 10 mg QDAY LANG Administration Enoxaparin Sodium 40 mg 08/01/24 09:00 08/01/24 08:21 Enoxaparin Sod Inj 40 Mg/0.4 Ml Syringe SC 08/15/24 08:59 40 mg QDAY LANG Administration Glucagon 1 mg 07/31/24 17:52 Glucagon Inj 1 Mg Vial IM Q15MIN PRN BG <70, and no IV access Midazolam HCl 100 mg in 100 mls @ 1 mls/hr 07/31/24 06:31 07/31/24 15:45 Versed Pf Inj In Ns Premix IV 08/05/24 06:30 0 mg/hr .Q24H PRN 0 mls/hr PER PROTOCOL Titration Protocol 1 MG/HR Propofol 1,000 mg in 100 mls @ 2.177 mls/hr 07/31/24 06:48 08/02/24 07:02 Diprivan Ivpb IV 08/30/24 06:47 0 mcg/kg/min .Q24H PRN 0 mls/hr PER PROTOCOL Titration Protocol 5 MCG/KG/MIN Norepinephrine Bitartrate 16 mg in 250 mls @ 3.402 mls/hr 07/31/24 07:07 08/02/24 07:00 Levophed In Ns 16mg/250ml IV 08/30/24 07:06 0.09 mcg/kg/min .Q24H PRN 6.124 mls/hr PER protocol Titration Protocol 0.05 MCG/KG/MIN Fentanyl Citrate 2,500 mcg in 250 mls @ 2.5 mls/hr 07/31/24 16:03 08/02/24 07:02 Sublimaze Inj 2,500 Mcg/250 Ml Bag IV 08/05/24 16:02 0 mcg/hr .Q24H PRN 0 mls/hr PER PROTOCOL Titration Protocol 25 MCG/HR Ceftriaxone Sodium/Dextrose 50 mls @ 100 mls/hr 07/31/24 16:26 08/01/24 08:19 Rocephin/D5w 1gm Iv Premix IV 08/07/24 16:25 100 mls/hr QDAY LAGN Administration Amiodarone HCl/Dextrose 360 mg in 200 mls @ 16.667 mls/hr 08/01/24 15:04 08/02/24 07:02 Nexterone Ivpb IV 08/02/24 15:03 0 mls/hr .Q12H LANG Infusion Insulin Human Lispro 0 unit 07/31/24 18:00 08/02/24 05:41 Insulin Lispro (Admelog) 1 Unit/0.01 Ml Unit SC 08/30/24 17:59 2 unit Q6HR LANG Administration Protocol Home Medication- 10 mg 08/01/24 11:45 08/01/24 12:34 Please Speak With PO 08/31/24 11:44 Not Given Patient Caregiver To QDAY LANG Have Rx Brought To [facility] Protocol Pantoprazole Sodium 40 mg 08/01/24 09:00 08/01/24 08:21 Pantoprazole Inj 40 Mg Vial IVP 08/31/24 08:59 40 mg QDAY LANG Administration Plan Patient is an 84-year-old Maori-speaking male currently sedated, intubated and mechanically ventilated. History obtained from his with the use of healthcare hospitality workers and chart review. Patient is an 84-year-old male with a past medical history significant for essential hypertension, CAD s/p stents, NIDDM [7.8], diabetic neuropathy, left BKA, CKD stage IIIb and CLL on ruxolitinib. Patient presented on 07/31 with cardiac arrest.Cardiology was consulted for post cardiac arrest. 1. Cardiac arrest 2. PEA 3. NSTEMI likely type II 4. NSVT 5. Cardiogenic shock Patient went into cardiac arrest at home and subsequently obtained ROSC in the ED after successive rounds of CPR, intubation and epinephrine. Patient's initial heart rate send showed PEA and EKG on arrival showed ventricular pacing with rates of [address] changes. Currently patient is in sinus rhythm with bouts of NSVT <30 seconds. Initially patient's troponin was elevated at 0.056 up trended to 1.759 and subsequently down trended to 1.366 Patient was initially on norepinephrine, epinephrine and dopamine infusion. Epinephrine infusion was discontinued today and dopamine down trended. Transthoracic echocardiogram completed on 08/01 findings include: Limited and suboptmal images - pt intubated and sedated. Normal LV size and function. Mild LVH. Estimated EF 55-60% Normal RV size and function. Mild biatrial dilataion Mild MAC. Mild AV sclerosis without stenosis. Midl biatrial dilatation: Mild TR. Midly dilated IVC. Pleural effusion present. Based on the normal echocardiogram from today and recent need to stress scans x 2 in February and May 2024 along with normal Holter monitoring, EKG without any acute ischemic changes. Unlikely cardiac etiology and as patient also had PEA arrest without a VT or VF. Unclear etiology of the cardiac arrest at the present moment could be secondary to hypoxic or hypercapnic respiratory failure as a pCO2 was elevated initially and is improving now. Patient also has a question of aspiration pneumonia. This morning pt had an episode of bradycardia in the 40s 50s. Patient has received epinephrine and atropine, his heart rate improved for a while. Plan was to place to place a tempoarary pacemaker. At 7:45 AM patient had a cardiac arrest, asystole and CODE BLUE was activated, His was called during the code, nurse Susan Mauricio and Dr. Guajardo reported to the about his condition and to clarify regarding his CODE STATUS. She was explained that the patient might need coronary angiogram and pacemaker placement. His refused all interventions, which was confirmed both by Maori-speaking nurses Hang and Susan. Patient's CODE STATUS was changed to DNR. But then his condition significantly worsened, he became asystolic and at the 8:13 AM patient was pronounced by Dr. Blood. Plan: -Patient 6. CAD s/p stents 7. Hyperlipidemia Patient has a history of stents in the past. Lipid profile from last week showed triglycerides 101, cholesterol 77 and LDL 27 Plan: -Patient 8. NIDDM type II [7.8] 9. Diabetic neuropathy 10. Left BKA On admission HbA1c 7.8 patient's home medication metformin 1 g p.o. twice daily. Continue management as per primary team 11. DEE on CKD stage IIIb On admission CR 2.3, baseline CR between 1.7?9. Continue management as per primary team 12. CLL Patient was diagnosed earlier this year in [place]. Home medication ruxolitinib 13. Pneumonia DDx aspiration, CAP, hospital-acquired pneumonia Patient was started on ceftriaxone and azithromycin IV. Continue management as per primary team Continue rest of management as per primary team. We are grateful to be able to participate in Mr. Culp's care. Thank you for the consult Plan of care discussed with attending Chronometer Repairer, Dr Apollo Butterfield MD PGY 1 Attending Provider Attestation/Addendum I have personally seen and examined the patient separately on the above date of service and discussed the plan of care with the resident. I reviewed the resident Dr. Butterfield consultation progress note and agree with the resident findings and plan in the note above and have also edited the documentation to reflect my findings and plan. John Bustillos M.D. Interventional Cardiology
--- NOTE | 2024-08-02 16:49 | DES_ITS ---
<Statement entered by Guicho Blood MD - 08/06/24 05:42> Patient seen and examined with above resident, Eliana Guajardo MD. I agree with the documentation as per above. Patient with severe bradycardia at this morning requiring epinephrine and atropine with improvement in heart rate. With return of adequate circulation ST elevation was noted on telemetry and heart alert was activated with plan for taking the patient to [facility] once stabilized. In the ICU, plan was to place temporary transvenous pacemaker however after notifying the patient's family, the has decided to no longer intervene and change CODE STATUS to DNR. Given likely large ischemic event that we were unable to intervene on at the discretion of the family, patient with recurrent event short ly thereafter leading to demise despite medical therapy and support. Patient's mental status also suggested hypoxic brain injury after nbi-yb-yhsapwjk cardiac arrest. Overall prognosis remains poor despite medical therapy. Patient's family was updated by myself at bedside when they were able to arrive after the patient had passed. They were appreciative of all care. Condolences given. Documentation for date of: 08/02/24 Summary Date and Time Date of admission: 07/31/24 11:42 Date of : 08/02/24 Time of : 08:13 Summary Hospital Course: Patient is a 84-year-old male with a previous medical history of CAD status post stent placement, hypertension, xxa-miyfivj-tsyieawyh diabetes mellitus, status post left BKA, lymphoproliferative disorder who was brought in by ambulance on 5:33 AM after loss of conscioussness and breathing witnessed by his who started CPR and called EMS. Exact downtime is unknown. Patient continued to be resuscitated on the way to the hospital. Before that, according to the , he reported feeling shortness of breath a few days ago, went to a doctor on Thursday, denies any recent medication changes. She reported that he was diagnosed with leukemia earlier in the year. He also has a history of 3 stent placements. In the ED continued to receive CPR, epinephrine and ROSC was achieved, after that he was started on epinephrine and norepinephrine drip. He also received amiodaron 150 mg once and was shortly transcutaneously paced due to bradycardia. He also received vancomycin and zosyn once. Labs showed leukocytosis 22, hemoglobin 12.4, PLT 679. ABG showed pH of 7.2, pCO2 68, pO2 81. CBC showed sodium 142, potassium 2.6, creatinine 1.1, lactic acid 4.8, troponin 0.056, BNP 304. UA was unremarkable. U tox was negative .Patient was admitted to ICU for cardiogenic shock and postcardiac arrest treatment and management. Patient was initially on norepinephrine, epinephrine and dopamine drip. He received antibiotics and was started on amiodarone drip due to short episode of ventricular polymorphic tachycardia. Epinephrine drip was discontinued and dose of dopamine was decreased and also discontinued. Throughout his admission he had episodes of bradycardia and desaturation to the 80s, he was on sedation and pressor support. His neurostatus was suggestive of possible hypoxic brain injury. Pst Manager Dr. Bustillos was consulted, At 7:45 AM patient had a cardiac arrest, asystole and CODE BLUE was activated, before that he had an episode of bradycardia in the 40s 50s. Patient has received epinephrine and atropine, his heart rate improved for a while. His was called during the code, nurse Susan Mauricio and Dr. Guajardo reported to the about his condition and to clarify regarding his CODE STATUS. She was explained that the patient might need coronary angiogram and pacemaker placement. His refused all interventions, which was confirmed both by Micronesian-speaking nurses Hang and Susan. Patient's CODE STATUS was changed to DNR. But then his condition significantly worsened, he became asystolic and at the 8:13 AM patient was pronounced by Dr. Blood. Additional Data Confirmation of as documented by pronouncing clinician: no pulse, no respirations, no heart sounds and pupils fixed and dilated Family: at bedside and contacted Attending/PCP notified?: Yes Attending physician: Guicho Blood MD Was code activated?: Yes Autopsy requested?: No trial examiner notified?: No Organ bank notified?: Yes Advance directives: No Hospice patient?: No Visit Providers Provider Primary care physician: Caleb Wen([facility])RAVI Consults: 07/31/24 16:22 Consult to Urology Routine Comment: Mild hemorrhage adjacent to the bladder in pelvis Consulting Provider: Jonas Tucker 08/01/24 11:37 Consult to Cardiology Routine Comment: s/p cardiac arrest Consulting Provider: John Bustillos Discharge Plan Plan Patient Disposition: Patient condition on transfer: Stable Prescriptions/Referrals Referrals: Behzad([facility] [place] [facility])Caleb NP [Primary Care Provider] - Patient/Caregiver Discharge Instructions Print Language: Micronesian
== END 2024-08-02 08:13 | disposition expired | DRG 208 ==
LOC: SERX 11:32 → SERHOLD 12:18 → S2SX 08-01 08:14 → SERHOLD 08-01 09:55 → S2SX 08-01 09:55
PROVIDERS: Student in an Organized Health Care Education/Training Program; Admitting Provider Internal Medicine Critical Care Medicine; Emergency Provider Emergency Medicine; PCP Nurse Practitioner Family; Visit Provider Internal Medicine Critical Care Medicine
DX: J96.01 Acute respiratory failure with hypoxia (principal); J69.0 Pneumonitis due to inhalation of food and vomit; I21.A1 Myocardial infarction type 2; G93.1 Anoxic brain damage, not elsewhere classified; E87.20 Acidosis, unspecified; N17.9 Acute kidney failure, unspecified; I47.29 Other ventricular tachycardia; M96.A3 Multiple fractures of ribs associated with chest compression and cardiopulmonary resuscitation; C91.10 Chronic lymphocytic leukemia of B-cell type not having achieved remission; R57.0 Cardiogenic shock; I25.10 Atherosclerotic heart disease of native coronary artery without angina pectoris; R00.1 Bradycardia, unspecified; E87.6 Hypokalemia; E11.40 Type 2 diabetes mellitus with diabetic neuropathy, unspecified; E11.22 Type 2 diabetes mellitus with diabetic chronic kidney disease; E78.5 Hyperlipidemia, unspecified; E83.42 Hypomagnesemia; I12.9 Hypertensive chronic kidney disease with stage 1 through stage 4 chronic kidney disease, or unspecified chronic kidney disease; I08.2 Rheumatic disorders of both aortic and tricuspid valves; N18.32 Chronic kidney disease, stage 3b; I46.2 Cardiac arrest due to underlying cardiac condition; N32.89 Other specified disorders of bladder; Z66 Do not resuscitate; Z89.512 Acquired absence of left leg below knee; Z95.5 Presence of coronary angioplasty implant and graft; Z79.84 Long term (current) use of oral hypoglycemic drugs; Z79.82 Long term (current) use of aspirin; Z79.02 Long term (current) use of antithrombotics/antiplatelets; Z79.899 Other long term (current) drug therapy
CPT/HCPCS: 36415; 36600; 70450; 71045; 71275; 74174; 80053; 80307; 81001; 82803; 83605; 83735; 83880; 84100; 84132; 84484; 85025; 87040; 87081; 87205; 87811; 92950; 93005; 93306; 94002; 94003; 94640; 96365; 99291; A4649; A9270; J0171; J0283; J0456; J0696; J1265; J1650; J1815; J2251; J2470; J2543; J2704; J3010; J3371; J3475; J3480; J3490; J7050; Q9967; J3370